=== PATIENT | female | born 1955 | race Caucasian/White ===

== ENCOUNTER → 2018-03-24 | Emergency (ER) | payer SELFPAY ==
[~2018-03-24] MED LIST: ACETAMINOPHEN 1,000 MG/100 ML RTUPB IV ONE; ACETAMINOPHEN 325 MG TABLET PO ONE; ACETAMINOPHEN 325 MG TABLET PO PRN; ACETAMINOPHEN 650 MG SUPP.RECT PR PRN; DEXTROSE 40% GEL 15 GM TUBE PO PRN; DEXTROSE 50%-WATER 25 GM/50 ML DISP.SYRIN IV PRN; FENTANYL CITRATE INJ/PF 100 MCG/2 ML AMPUL IV PRN; GLUCAGON,HUMAN RECOMB 1 MG INJ SUBCUT PRN; IMIPENEM/CILASTATIN SODIUM INJ 500 MG VIAL IV ONE; METOCLOPRAMIDE HCL INJ/PF 10 MG/2 ML SDV IV ONE; MORPHINE SULFATE 10 MG/ML INJ IV PRN; NORMAL SALINE 1000 ML 1,000 ML IV ONE; NORMAL SALINE 1000 ML 1,000 ML IV PRN; ONDANSETRON 4 MG TAB.RAPDIS PO ONE; ONDANSETRON HCL INJ/PF 4 MG/2 ML SDV IV PRN; PANTOPRAZOLE SODIUM 40 MG VIAL IV SCH; PIPERACILLIN/TAZOBACTAM 3.375 GM VIAL IV ONE; RINGERS SOLUTION,LACTATED 1,000 ML IV ONE
--- NOTE | 2018-03-24 18:57 | ER Document Report ---
ED Medical Screen (RME) - General Chief Complaint: Low Blood Pressure Stated Complaint: BLOOD PRESSURE ISSUES TRAVEL OUTSIDE OF THE [place] IN LAST 30 DAYS: No - HPI Notes: 03/24/18 18:55 Patient is a 63-year-old female no significant past medical history presents the emergency department complaining of having fever, nausea, vomiting, occasional dry nonproductive cough that began today. Her fever was as high as 102-103 when she did take Advil for. Patient was seen in urgent care and had a negative influenza test and was told to come the emergency department as her blood pressure was lower for her (80 systolic). Patient states that she has not been eating or drinking much today. She is a decreased amount of urination's. Denies any headache, neck pain, sore throat, chest pain, palpitations, syncope, dyspnea, sob, abdominal pain, diarrhea, urinary retention, dysuria, hematuria, or rash. I have treated and performed a rapid initial assessment of this patient. A comprehensive ED assessment and evaluation of the patient, analysis of test results and completion of medical decision making process will be conducted by additional ED providers. PHYSICAL EXAMINATION: GENERAL: Well-appearing, well-nourished and in no acute distress. A&Ox4. Answers questions appropriately. LUNGS: Breath sounds clear to auscultation bilaterally and equal. No wheezes rales or rhonchi. HEART: Regular rate and rhythm without murmurs, rubs, gallops. ABDOMEN: Soft, nondistended abdomen. No guarding, no rebound. Normal bowel sounds present. No CVA tenderness bilaterally. No obvious tenderness (cannot elicit thorough abd exam w/o table, however). Extremities: No cyanosis, clubbing, or edema b/l. NEUROLOGICAL: Normal speech, normal gait. PSYCH: Normal mood, normal affect. - Related Data Allergies/Adverse Reactions: No Known Allergies Allergy (Verified 03/24/18 16:30) Physical Exam - Vital signs Vitals: Temp Pulse Resp BP Pulse Ox 98.5 F 120 H 18 107/65 97 03/24/18 16:34 03/24/18 16:34 03/24/18 16:34 03/24/18 16:34 03/24/18 16:34 Course - Vital Signs Vital signs: Temp Pulse Resp BP Pulse Ox 98.5 F 120 H 18 107/65 97 03/24/18 16:34 03/24/18 16:34 03/24/18 16:34 03/24/18 16:34 03/24/18 16:34
--- NOTE | 2018-03-24 19:50 | RADIOLOGY REPORT (SQ) ---
EXAM DESCRIPTION: CHEST 2 VIEWS COMPLETED DATE/TIME: 03/24/2018 7:41 pm REASON FOR STUDY: fever, cough COMPARISON: None. EXAM PARAMETERS: NUMBER OF VIEWS: two views TECHNIQUE: Digital Frontal and Lateral radiographic views of the chest acquired. RADIATION DOSE: NA LIMITATIONS: none FINDINGS: LUNGS AND PLEURA: No opacities, masses or pneumothorax. No pleural effusion. MEDIASTINUM AND HILAR STRUCTURES: No masses or contour abnormalities. HEART AND VASCULAR STRUCTURES: Heart normal size. No evidence for failure. BONES: No acute findings. HARDWARE: None in the chest. OTHER: No other significant finding. IMPRESSION: NO ACUTE RADIOGRAPHIC FINDING IN THE CHEST. TECHNICAL DOCUMENTATION: JOB ID: [id number] [employer]- All Rights Reserved Reading location - IP/workstation name: [email or web address]
[2018-03-24 20:49] LABS: HEMATOCRIT 30.9 % (36.0-47.0); HEMOGLOBIN 10.4 g/dL (12.0-15.5); MEAN CORPUSCULAR HEMOGLOBIN 28.8 pg (27.0-33.4); MEAN CORPUSCULAR HGB CONC 33.8 g/dL (32.0-36.0); MEAN CORPUSCULAR VOLUME 85 fl (80-97); RED BLOOD COUNT 3.62 10^6/uL (3.72-5.28); RED CELL DISTRIBUTION WIDTH 16.7 % (11.5-14.0)
[2018-03-24 20:55] LABS: PLATELET COUNT 326 10^3/uL (150-450)
[2018-03-24 21:01] LABS: ABSOLUTE LYMPHOCYTES# (MANUAL) 3.2 10^3/uL (0.5-4.7); ABSOLUTE MONOCYTES # (MANUAL) 1.1 10^3/uL (0.1-1.4); ABSOLUTE NEUTROPHILS# (MANUAL) 49.1 10^3/uL (1.7-8.2); BASOPHILS % (MANUAL) 0 % (0-2); EOSINOPHILS % (MANUAL) 0 % (0-6); LYMPHOCYTES % (MANUAL) 6 % (13-45); METAMYELOCYTES % (MANUAL) 2 % (0); MONOCYTES % (MANUAL) 2 % (3-13); PLATELET CLUMPS PRESENT; PLATELET COMMENT ADEQUATE; SEGMENTED NEUTROPHILS % (MAN) 80 % (42-78); TOTAL CELLS COUNTED 100
[2018-03-24 21:05] LABS: ANISOCYTOSIS 1+; OVALOCYTES SLIGHT; POIKILOCYTOSIS SLIGHT; TOXIC GRANULATION 2+; TOXIC VACUOLATION PRESENT
[2018-03-24 21:08] LABS: BAND NEUTROPHILS % (MANUAL) 10 % (3-5)
[2018-03-24 21:10] LABS: WHITE BLOOD COUNT 53.4 10^3/uL (4.0-10.5)
[2018-03-24 21:51] LABS: ALANINE AMINOTRANSFERASE 11 U/L (9-52); ALBUMIN 3.6 g/dL (3.5-5.0); ALKALINE PHOSPHATASE 82 U/L (38-126); ANION GAP 10 (5-19); ASPARTATE AMINO TRANSFERASE 15 U/L (14-36); BILIRUBIN,DIRECT 0.6 mg/dL (0.0-0.4); BILIRUBIN,TOTAL 1.1 mg/dL (0.2-1.3); BLOOD UREA NITROGEN 18 mg/dL (7-20); CALCIUM 8.7 mg/dL (8.4-10.2); CARBON DIOXIDE 22 mmol/L (22-30); CHLORIDE 102 mmol/L (98-107); GLUCOSE 161 mg/dL (75-110); LIPASE 19.1 U/L (23-300); POTASSIUM 3.7 mmol/L (3.6-5.0); SODIUM 134.2 mmol/L (137-145); TOTAL PROTEIN 6.9 g/dL (6.3-8.2)
--- NOTE | 2018-03-24 22:11 | ER Document Report ---
Addendum entered and electronically signed by PAT MCNALLY PA-C 03/25/18 15:14: Course - Re-evaluation Re-evalutation: 03/25/18 15:14 Transport has arrived for patient. Pt has no new concerns or complaints. Vitals acceptable. Pt stable for transfer. - Vital Signs Vital signs: Temp Pulse Resp BP Pulse Ox 99.1 F 120 H 16 107/88 H 100 03/25/18 11:06 03/24/18 16:34 03/25/18 14:40 03/25/18 14:40 03/25/18 14:40 - Laboratory Result Diagrams: 03/24/18 20:06 03/24/18 21:24 Laboratory results interpreted by me: 03/24/18 03/24/18 03/24/18 20:06 21:24 22:30 WBC 53.4 H* RBC 3.62 L Hgb 10.4 L Hct 30.9 L RDW 16.7 H Seg Neuts % (Manual) 80 H Band Neutrophils % 10 H Lymphocytes % (Manual) 6 L Monocytes % (Manual) 2 L Metamyelocytes % 2 H Abs Neuts (Manual) 49.1 H Sodium 134.2 L Creatinine 1.58 H Est GFR ( Amer) 40 L Est GFR (Non-Af Amer) 33 L Glucose 161 H Lactic Acid Direct Bilirubin 0.6 H Lipase 19.1 L Urine Protein >=500 H Urine Urobilinogen 2.0 H Ur Leukocyte Esterase MODERATE H 03/24/18 23:15 WBC RBC Hgb Hct RDW Seg Neuts % (Manual) Band Neutrophils % Lymphocytes % (Manual) Monocytes % (Manual) Metamyelocytes % Abs Neuts (Manual) Sodium Creatinine Est GFR ( Amer) Est GFR (Non-Af Amer) Glucose Lactic Acid 2.5 H Direct Bilirubin Lipase Urine Protein Urine Urobilinogen Ur Leukocyte Esterase Original Note: ED General - General Chief Complaint: Low Blood Pressure Stated Complaint: BLOOD PRESSURE ISSUES Time Seen by Provider: 03/24/18 18:57 Mode of Arrival: Ambulatory Information source: Patient, Relative, [facility] Records Notes: 63-year-old female with history of alcoholism presents via private vehicle to the emergency department complaining of having fever, nausea, vomiting, occasional dry nonproductive cough that began yesterday. Her fever was as high as 102-103 when she did take Advil for. Patient was seen in urgent care and had a negative influenza test and was told to come the emergency department as her blood pressure was lower for her (80 systolic). Patient states that she has not been eating or drinking much today. She is a decreased amount of urination's. Admits to recent dysuria. Denies any headache, neck pain, sore throat, chest pain, palpitations, syncope, dyspnea, sob, abdominal pain, diarrhea, urinary retention, , hematuria, or rash. Patient states that one month prior to arrival she was experiencing lower abdominal pain, skin flushing. Patient has not had a drink since . She states that she is a binge drinker and before had not drinking for 2 months. She denies any history of cancer, IV drug use. TRAVEL OUTSIDE OF THE [place] IN LAST 30 DAYS: No - HPI Onset: Other Onset/Duration: Gradual, Persistent, Worse Quality of pain: No pain Associated symptoms: Nonproductive cough, Fever, Nausea, Vomiting. denies: Body/muscle aches, Chest pain, Diarrhea, Headache, Shortness of breath Exacerbated by: Denies Relieved by: Denies Similar symptoms previously: No Recently seen / treated by doctor: Yes - Related Data Allergies/Adverse Reactions: No Known Allergies Allergy (Verified 03/24/18 16:30) Past Medical History - General Information source: Patient - Social History Smoking Status: Former Smoker Frequency of alcohol use: hx of alcoholism. last drink 03/03/18 Drug Abuse: None Lives with: Spouse/Significant other Family History: Reviewed & Not Pertinent Patient has suicidal ideation: No Patient has homicidal ideation: No - Medical History Medical History: Negative Renal/ Medical History: Denies: Hx Peritoneal Dialysis Past Surgical History: Reports: Hx Orthopedic Surgery - R ankle Review of Systems - Review of Systems Constitutional: Fever, Malaise, Recent illness. denies: Weight loss EENT: denies: Blurred vision, Throat pain, Difficulty swallowing Cardiovascular: denies: Chest pain, Palpitations, Dizziness Respiratory: denies: Cough, Short of breath Gastrointestinal: Vomiting. denies: Abdominal pain Genitourinary: Dysuria. denies: Flank pain Female Genitourinary: No symptoms reported Musculoskeletal: denies: Back pain Skin: denies: Rash Hematologic/Lymphatic: No symptoms reported Neurological/Psychological: denies: Headaches -: Yes All other systems reviewed and negative Physical Exam - Vital signs Vitals: Temp Pulse Resp BP Pulse Ox 98.5 F 120 H 18 107/65 97 03/24/18 16:34 03/24/18 16:34 03/24/18 16:34 03/24/18 16:34 03/24/18 16:34 - Notes Notes: PHYSICAL EXAMINATION: GENERAL: Well-appearing, well-nourished and in no acute distress. HEAD: Atraumatic, normocephalic. EYES: Pupils equal round and reactive to light, extraocular movements intact, conjunctiva are normal. ENT: Nares patent, oropharynx clear without exudates. Moist mucous membranes. NECK: Normal range of motion, supple without lymphadenopathy LUNGS: Breath sounds clear to auscultation bilaterally and equal. No wheezes rales or rhonchi. HEART: Regular rate and rhythm without murmurs ABDOMEN: Soft, nontender, nondistended abdomen. No guarding, no rebound. No masses appreciated. Female : deferred Musculoskeletal: Normal range of motion, no pitting or edema. No cyanosis. NEUROLOGICAL: Cranial nerves grossly intact. Normal speech, normal gait. Normal sensory, motor exams PSYCH: Normal mood, normal affect. SKIN: Warm, Dry, normal turgor, no rashes or lesions noted. Course - Re-evaluation Re-evalutation: Laboratory 03/24/18 03/24/18 03/24/18 20:06 20:06 21:24 WBC 53.4 H* RBC 3.62 L Hgb 10.4 L Hct 30.9 L MCV 85 MCH 28.8 MCHC 33.8 RDW 16.7 H Plt Count 326 Total Counted 100 Seg Neutrophils % Not Reportable Seg Neuts % (Manual) 80 H Band Neutrophils % 10 H Lymphocytes % Not Reportable Lymphocytes % (Manual) 6 L Monocytes % Not Reportable Monocytes % (Manual) 2 L Eosinophils % Not Reportable Eosinophils % (Manual) 0 Basophils % Not Reportable Basophils % (Manual) 0 Metamyelocytes % 2 H Absolute Neutrophils Not Reportable Abs Neuts (Manual) 49.1 H Absolute Lymphocytes Not Reportable Abs Lymphs (Manual) 3.2 Absolute Monocytes Not Reportable Abs Monocytes (Manual) 1.1 Absolute Eosinophils Not Reportable Absolute Eos (Manual) 0.0 Absolute Basophils Not Reportable Abs Basophils (Manual) 0.0 Toxic Granulation 2+ Toxic Vacuolation PRESENT Clumped Platelets PRESENT Platelet Comment ADEQUATE Poikilocytosis SLIGHT Anisocytosis 1+ Ovalocytes SLIGHT Sodium Cancelled 134.2 L Potassium Cancelled 3.7 Chloride Cancelled 102 Carbon Dioxide Cancelled 22 Anion Gap Cancelled 10 BUN Cancelled 18 Creatinine Cancelled 1.58 H Est GFR ( Amer) Cancelled 40 L Est GFR (Non-Af Amer) Cancelled 33 L Glucose Cancelled 161 H Lactic Acid Calcium Cancelled 8.7 Total Bilirubin Cancelled 1.1 Direct Bilirubin Cancelled 0.6 H Neonat Total Bilirubin Cancelled Not Reportable Neonat Direct Bilirubin Cancelled Not Reportable Neonat Indirect Bili Cancelled Not Reportable AST Cancelled 15 ALT Cancelled 11 Alkaline Phosphatase Cancelled 82 Creatine Kinase CK-MB (CK-2) Troponin I Total Protein Cancelled 6.9 Albumin Cancelled 3.6 Lipase Cancelled 19.1 L Urine Color Urine Appearance Urine pH Ur Specific Diamond Urine Protein Urine Glucose (UA) Urine Ketones Urine Blood Urine Nitrite Urine Bilirubin Urine Urobilinogen Ur Leukocyte Esterase Urine WBC (Auto) Urine RBC (Auto) Urine Bacteria (Auto) Urine WBC Clumps Squamous Epi Cells Auto U Non-Squamous Epis Auto Urine Mucus (Auto) Urine Ascorbic Acid Influenza A (Rapid) Influenza B (Rapid) 03/24/18 03/24/18 03/24/18 21:24 21:24 22:30 WBC RBC Hgb Hct MCV MCH MCHC RDW Plt Count Total Counted Seg Neutrophils % Seg Neuts % (Manual) Band Neutrophils % Lymphocytes % Lymphocytes % (Manual) Monocytes % Monocytes % (Manual) Eosinophils % Eosinophils % (Manual) Basophils % Basophils % (Manual) Metamyelocytes % Absolute Neutrophils Abs Neuts (Manual) Absolute Lymphocytes Abs Lymphs (Manual) Absolute Monocytes Abs Monocytes (Manual) Absolute Eosinophils Absolute Eos (Manual) Absolute Basophils Abs Basophils (Manual) Toxic Granulation Toxic Vacuolation Clumped Platelets Platelet Comment Poikilocytosis Anisocytosis Ovalocytes Sodium Potassium Chloride Carbon Dioxide Anion Gap BUN Creatinine Est GFR ( Amer) Est GFR (Non-Af Amer) Glucose Lactic Acid Calcium Total Bilirubin Direct Bilirubin Neonat Total Bilirubin Neonat Direct Bilirubin Neonat Indirect Bili AST ALT Alkaline Phosphatase Creatine Kinase 32 CK-MB (CK-2) 0.29 Troponin I < 0.012 Total Protein Albumin Lipase Urine Color YELLOW Urine Appearance TURBID Urine pH 5.0 Ur Specific Diamond 1.023 Urine Protein >=500 H Urine Glucose (UA) NEGATIVE Urine Ketones NEGATIVE Urine Blood NEGATIVE Urine Nitrite NEGATIVE Urine Bilirubin NEGATIVE Urine Urobilinogen 2.0 H Ur Leukocyte Esterase MODERATE H Urine WBC (Auto) >182 Urine RBC (Auto) 47 Urine Bacteria (Auto) 1+ Urine WBC Clumps MANY Squamous Epi Cells Auto 3 U Non-Squamous Epis Auto 4 Urine Mucus (Auto) FEW Urine Ascorbic Acid NEGATIVE Influenza A (Rapid) Influenza B (Rapid) 03/24/18 03/24/18 22:30 23:15 WBC RBC Hgb Hct MCV MCH MCHC RDW Plt Count Total Counted Seg Neutrophils % Seg Neuts % (Manual) Band Neutrophils % Lymphocytes % Lymphocytes % (Manual) Monocytes % Monocytes % (Manual) Eosinophils % Eosinophils % (Manual) Basophils % Basophils % (Manual) Metamyelocytes % Absolute Neutrophils Abs Neuts (Manual) Absolute Lymphocytes Abs Lymphs (Manual) Absolute Monocytes Abs Monocytes (Manual) Absolute Eosinophils Absolute Eos (Manual) Absolute Basophils Abs Basophils (Manual) Toxic Granulation Toxic Vacuolation Clumped Platelets Platelet Comment Poikilocytosis Anisocytosis Ovalocytes Sodium Potassium Chloride Carbon Dioxide Anion Gap BUN Creatinine Est GFR ( Amer) Est GFR (Non-Af Amer) Glucose Lactic Acid 2.5 H Calcium Total Bilirubin Direct Bilirubin Neonat Total Bilirubin Neonat Direct Bilirubin Neonat Indirect Bili AST ALT Alkaline Phosphatase Creatine Kinase CK-MB (CK-2) Troponin I Total Protein Albumin Lipase Urine Color Urine Appearance Urine pH Ur Specific Diamond Urine Protein Urine Glucose (UA) Urine Ketones Urine Blood Urine Nitrite Urine Bilirubin Urine Urobilinogen Ur Leukocyte Esterase Urine WBC (Auto) Urine RBC (Auto) Urine Bacteria (Auto) Urine WBC Clumps Squamous Epi Cells Auto U Non-Squamous Epis Auto Urine Mucus (Auto) Urine Ascorbic Acid Influenza A (Rapid) NEGATIVE Influenza B (Rapid) NEGATIVE Chest X-Ray 03/24/18 18:54 IMPRESSION: NO ACUTE RADIOGRAPHIC FINDING IN THE CHEST. Abdomen/Pelvis CT 03/24/18 22:06 IMPRESSION: Small hiatal hernia. Minor scarring in the lung bases. Complex mixed cystic and solid mass in the left adnexa/left hemipelvis with surrounding inflammation and phlegmon. There are several sigmoid diverticuli in the region and there is wall thickening of the sigmoid colon. However, whether this relates to diverticular abscess or complex ovarian neoplasm is indeterminate. The mass and inflammation results in mild to moderate left-sided hydronephrosis and hydroureter with left perinephric inflammatory change and edema. Cholelithiasis. Nodular, cirrhotic change to the liver. Splenomegaly at 16 cm. TECHNICAL DOCUMENTATION: Quality ID # 436: Final reports with documentation of one or more dose reduction techniques (e.g., Automated exposure control, adjustment of the mA and/or kV according to patient size, use of iterative reconstruction technique) copyright 2010 [employer]- All Rights Reserved Chest CT 03/24/18 22:06 IMPRESSION: Small hiatal hernia. Minor scarring in the lung bases. Complex mixed cystic and solid mass in the left adnexa/left hemipelvis with surrounding inflammation and phlegmon. There are several sigmoid diverticuli in the region and there is wall thickening of the sigmoid colon. However, whether this relates to diverticular abscess or complex ovarian neoplasm is indeterminate. The mass and inflammation results in mild to moderate left-sided hydronephrosis and hydroureter with left perinephric inflammatory change and edema. Cholelithiasis. Nodular, cirrhotic change to the liver. Splenomegaly at 16 cm. TECHNICAL DOCUMENTATION: Quality ID # 436: Final reports with documentation of one or more dose reduction techniques (e.g., Automated exposure control, adjustment of the mA and/or kV according to patient size, use of iterative reconstruction technique) copyright 2010 [employer]- All Rights Reserved Head CT 03/24/18 22:06 IMPRESSION: Unremarkable unenhanced CT brain TECHNICAL DOCUMENTATION: Quality ID # 436: Final reports with documentation of one or more dose reduction techniques (e.g., Automated exposure control, adjustment of the mA and/or kV according to patient size, use of iterative reconstruction technique) copyright 2010 [employer]- All Rights Reserved Temp Pulse Resp BP Pulse Ox 101.2 F H 120 H 15 119/60 100 03/24/18 23:51 03/24/18 16:34 03/24/18 23:09 03/24/18 23:09 03/24/18 23:09 03/24/18 23:26 Spoke to the radiologist regarding patient's abdominal CT. She says that there is a large complex mass on the left side. She is unable to determine whether this is a diverticular abscess or a ovarian tumor. She does not think that a transvaginal ultrasound would differentiate this mass at this time. Dr. Banks surgery on-call has been contacted to see the patient. CBC shows a significant leukocytosis of 53 with a bandemia. CMP does show a acute kidney injury with a creatinine of 1.58. Urinalysis consistent with urinary tract infection. Influenza negative. Zosyn, imipenem, Tylenol, IV fluids administered. 03/24/18 23:55 Dr. Banks evaluated the patient and is requesting a transvaginal ultrasound. He is requesting that the hospitalist admit the patient but if they refuse he has agreed to admit the patient to the surgical floor. 03/25/18 01:56 03/25/18 02:[address] Nuñez hospitalist who states that the patient should be admitted to surgery. He states that he will consult. Dr. Coombs made aware of the of the hospitalist refusal for admission. He agrees to admit the patient to the IMCU. Patient reevaluated multiple times and she remains alert, awake and is in no acute distress. Patient agreeable to admission. 03/25/18 02:53 - Vital Signs Vital signs: Temp Pulse Resp BP Pulse Ox 100.1 F 120 H 12 112/67 96 03/25/18 01:20 03/24/18 16:34 03/25/18 02:25 03/25/18 02:25 03/25/18 02:25 - Laboratory Result Diagrams: 03/24/18 20:06 03/24/18 21:24 Laboratory results interpreted by me: 03/24/18 03/24/18 03/24/18 20:06 21:24 22:30 WBC 53.4 H* RBC 3.62 L Hgb 10.4 L Hct 30.9 L RDW 16.7 H Seg Neuts % (Manual) 80 H Band Neutrophils % 10 H Lymphocytes % (Manual) 6 L Monocytes % (Manual) 2 L Metamyelocytes % 2 H Abs Neuts (Manual) 49.1 H Sodium 134.2 L Creatinine 1.58 H Est GFR ( Amer) 40 L Est GFR (Non-Af Amer) 33 L Glucose 161 H Lactic Acid Direct Bilirubin 0.6 H Lipase 19.1 L Urine Protein >=500 H Urine Urobilinogen 2.0 H Ur Leukocyte Esterase MODERATE H 03/24/18 23:15 WBC RBC Hgb Hct RDW Seg Neuts % (Manual) Band Neutrophils % Lymphocytes % (Manual) Monocytes % (Manual) Metamyelocytes % Abs Neuts (Manual) Sodium Creatinine Est GFR ( Amer) Est GFR (Non-Af Amer) Glucose Lactic Acid 2.5 H Direct Bilirubin Lipase Urine Protein Urine Urobilinogen Ur Leukocyte Esterase - Diagnostic Test Radiology reviewed: Image reviewed, Reports reviewed - EKG Interpretation by Me EKG shows normal: Sinus rhythm Rate: Normal - T wave inversions in leads V2 and V3 When compared to previous EKG there are: Previous EKG unavailable Critical Care Note - Critical Care Note Total time excluding time spent on procedures (mins): 45 - Minutes of critical care time spent in direct contact evaluating and reevaluating the patient, treating symptoms, reviewing labs and studies and speaking with family and consultants excluding any procedures Discharge - Discharge Clinical Impression: Pelvic mass, Tachycardia, Ovarian mass, left Sepsis Qualifiers: Sepsis type: sepsis due to unspecified organism Qualified Code(s): A41.9 - Sepsis, unspecified organism Leukocytosis Qualifiers: Leukocytosis type: bandemia Qualified Code(s): D72.825 - Bandemia Fever Qualifiers: Fever type: unspecified Qualified Code(s): R50.9 - Fever, unspecified Hypotension Qualifiers: Hypotension type: unspecified hypotension type Qualified Code(s): I95.9 - Hypotension, unspecified Urinary tract infection Qualifiers: Urinary tract infection type: site unspecified Hematuria presence: without hematuria Qualified Code(s): N39.0 - Urinary tract infection, site not specified Condition: Fair Disposition: ADMITTED INPATIENT Admitting Provider: Surgicalist Unit Admitted: [facility]
[2018-03-24 23:02] LABS: APPEARANCE,URINE TURBID; BILIRUBIN,URINE NEGATIVE (NEGATIVE); COLOR,URINE YELLOW; GLUCOSE, URINE NEGATIVE (NEGATIVE); KETONES,URINE NEGATIVE (NEGATIVE); LEUKOCYTE ESTERASE,URINE MODERATE (NEGATIVE); NITRITE,URINE NEGATIVE (NEGATIVE); PROTEIN,URINE >=500 mg/dL (NEGATIVE); URINE SPECIFIC GRAVITY 1.023
[2018-03-24 23:07] LABS: A TYPE INFLUENZA AG NEGATIVE (NEGATIVE); B INFLUENZA AG NEGATIVE (NEGATIVE)
--- NOTE | 2018-03-24 23:08 | RADIOLOGY REPORT (SQ) ---
EXAM DESCRIPTION: CT HEAD WITHOUT IV CONTRAST COMPLETED DATE/TME: 03/24/2018 22:06 CLINICAL HISTORY: 63 years, Female, Fever,wbc-53 COMPARISON: None. TECHNIQUE: 184 Images stored on PACS. All CT scanners at this facility use dose modulation, iterative reconstruction, and/or weight based dosing when appropriate to reduce radiation dose to as low as reasonably achievable (ALARA). [facility]: Dose Right [facility]: CareDose [facility]: Dose Right [facility]: Teradose 4D [facility]: [employer] LIMITATIONS: None. FINDINGS: The globes are intact. The paranasal sinuses and mastoid air cells are unremarkable. No displaced or depressed skull fracture. No intra or extra-axial hemorrhage. CT is limited for evaluation of acute infarct. No CT evidence for large or territorial acute infarct. No mass or midline shift. IMPRESSION: Unremarkable unenhanced CT brain TECHNICAL DOCUMENTATION: Quality ID # 436: Final reports with documentation of one or more dose reduction techniques (e.g., Automated exposure control, adjustment of the mA and/or kV according to patient size, use of iterative reconstruction technique) copyright 2011 [employer]- All Rights Reserved
--- NOTE | 2018-03-24 23:10 | RADIOLOGY REPORT (SQ) ---
EXAM DESCRIPTION: CT CHEST, abdomen and pelvis WITH IV CONTRAST COMPLETED DATE/TME: 03/24/2018 22:06 CLINICAL HISTORY: 63 years, Female, Fever,wbc-53 COMPARISON: None. TECHNIQUE: 737 Images stored on PACS. All CT scanners at this facility use dose modulation, iterative reconstruction, and/or weight based dosing when appropriate to reduce radiation dose to as low as reasonably achievable (ALARA). [facility]: Dose Right [facility]: CareDose [facility]: Dose Right [facility]: Teradose 4D [facility]: [employer] LIMITATIONS: None. FINDINGS: CT chest: The thyroid gland enhances normally. The mediastinal vasculature enhances normally. No mediastinal or hilar adenopathy. Small hiatal hernia. Osseous structures of the thorax are grossly intact. No pneumothorax. The visualized airways are patent. Minor scarring in the lung bases. Lungs are otherwise clear. CT abdomen/pelvis: Osseous structures are grossly intact. Fatty infiltrative change to the liver. The liver has a nodular contour suggesting cirrhotic change as well. The spleen is enlarged measuring 16 cm. The adrenal glands, pancreas are unremarkable. Multiple gallstones. The right kidney is unremarkable. Delayed excretion of the left kidney with an edematous appearance to the left kidney and left perinephric inflammatory change. Mild to moderate left-sided hydronephrosis and hydroureter. Findings are secondary to a complex mixed cystic and solid appearing mass in the left adnexa/left hemipelvis. There are surrounding inflammatory changes within the pelvis and there is also wall thickening of the adjacent sigmoid colon. Multiple sigmoid diverticuli are present. It is indeterminate whether this complex lesion reflects an abscess secondary to acute sigmoid diverticulitis or relates to an ovarian neoplasm with surrounding inflammation. Approximate size is 7.4 x 5.8 x 6.3 cm. There is surrounding phlegmon. No free air or free fluid.. IMPRESSION: Small hiatal hernia. Minor scarring in the lung bases. Complex mixed cystic and solid mass in the left adnexa/left hemipelvis with surrounding inflammation and phlegmon. There are several sigmoid diverticuli in the region and there is wall thickening of the sigmoid colon. However, whether this relates to diverticular abscess or complex ovarian neoplasm is indeterminate. The mass and inflammation results in mild to moderate left-sided hydronephrosis and hydroureter with left perinephric inflammatory change and edema. Cholelithiasis. Nodular, cirrhotic change to the liver. Splenomegaly at 16 cm. TECHNICAL DOCUMENTATION: Quality ID # 436: Final reports with documentation of one or more dose reduction techniques (e.g., Automated exposure control, adjustment of the mA and/or kV according to patient size, use of iterative reconstruction technique) copyright 2011 [employer]- All Rights Reserved
[2018-03-24 23:48] LABS: CREATINE KINASE MB 0.29 ng/mL (<4.55)
[2018-03-24 23:52] LABS: TROPONIN I < 0.012 ng/mL
--- NOTE | 2018-03-25 01:19 | RADIOLOGY REPORT (SQ) ---
EXAM DESCRIPTION: US TRANSVAGINAL COMPLETED DATE/TME: 03/24/2018 23:55 CLINICAL HISTORY: 63 years, Female, Left complex mass COMPARISON: CT from 03/24/2018. TECHNIQUE: Transverse and longitudinal transvaginal sonographic images of the pelvis LIMITATIONS: None. FINDINGS: The uterus measures 7.2 x 2.9 x 3.9 cm. The myometrium is homogenous. The endometrium is poorly defined. Endometrium measures approximately 9.1 mm in thickness, which is thickened in a postmenopausal patient. The right ovary is not well seen likely due to bowel gas. The left ovary measures 6.7 x 4.3 x 3.9 cm. Doppler and spectral analysis with color flow shows normal flow to the left ovary. There is a somewhat complex cystic lesion of the left ovary measuring 1.9 x 2.7 x 2.3 cm. No free fluid. IMPRESSION: Complex cystic lesion of the left ovary, as above. Given findings on recent CT scan, this lesion may only be partly assessed on the ultrasound. However, this is difficult to separate from the left ovary and is worrisome for complex neoplasm. The endometrium is considered thickened for postmenopausal patient, at 9.1 mm. copyright 2010 [employer]- All Rights Reserved
[2018-03-25] MEDS: HEPARIN SOD (PORCINE) 5,000 UNIT/ML 1 ML SYRINGE SUBCUT SCH ×2 (05:47→14:55)
--- NOTE | 2018-03-25 05:58 | PDOC CONSULTATION ---
Consultation Consult Date: 03/25/18 Attending physician:: SHIRA BANKS Consult reason:: RANJANA, Alcohol abuse, SIRS History of Present Illness Admission Date/PCP: 03/25/18 02:19 Patient complains of: Fever with nausea and vomiting History of Present Illness: MARISOL LUNA is a 63 year old female who presented to the emergency room from urgent care with a 1 day history of nausea, vomiting and fever. She admits that she had a severe fever of greater than 102 F at home that improved, earlier today, after she took ibuprofen. She continued to have nausea with vomiting and also acknowledged a mild nonproductive cough. Secondary to her nausea and vomiting her oral intake of food and fluids has significantly dropped off over the last 24 hours and subsequently she has not been passing much urine. She presented to the urgent care center where on evaluation they found her to have a low blood pressure (systolic of 80) on one reading and redirected her immediately to the emergency room. She acknowledges having prior similar episodes and has not identified any aggravating or other ameliorating factors for her fever with nausea and vomiting. In the emergency room she was found to have pyuria and a white count of 53,000 with a significant left shift. CT scan revealed a complex mass in her left lower abdomen/pelvis and surgery was consulted. Dr. Banks agreed to admit the patient but asked for a medical consult in the emergency room as the patient has a history of binge drinking/alcohol abuse as well as an acute kidney injury and SIRS syndrome. Past Medical History Cardiac Medical History: Denies: Coronary Artery Disease, Hypertension Pulmonary Medical History: Denies: Asthma, Chronic Obstructive Pulmonary Disease (COPD) EENT Medical History: Reports: None Neurological Medical History: Denies: Hemorrhagic CVA, Ischemic CVA, Seizures Renal/ Medical History: Denies: Chronic Kidney Disease, Nephrolithiasis Malignancy Medical History: Reports: None GI Medical History: Denies: Cirrhosis, Hepatitis Musculoskeltal Medical History: Denies: Arthritis, Fibromyalgia Skin Medical History: Denies: Eczema, Psoriasis Psychiatric Medical History: Reports: Alcohol Dependency, Tobacco Dependency Denies: Substance Abuse Traumatic Medical History: Reports: None Hematology: Denies: Anemia, Bleeding Tendencies Infectious Medical History: Reports: None Past Surgical History Past Surgical History: Reports: Orthopedic Surgery - Right ankle surgery Social History Information Source: Patient Lives with: Spouse/Significant other Smoking Status: Former Smoker Frequency of Alcohol Use: Heavy - Heavy binge drinking no history of alcohol withdrawal syndrome or seizures. Hx Recreational Drug Use: No Drugs: None Hx Prescription Drug Abuse: No Family History Parental Family History Reviewed: Yes Children Family History Reviewed: No Sibling(s) Family History Reviewed.: Yes Medication/Allergy Allergies/Adverse Reactions: No Known Allergies Allergy (Verified 03/24/18 16:30) Review of Systems Constitutional: PRESENT: anorexia, fever(s), other - Malaise Eyes: ABSENT: visual disturbances, other - Ocular pain Ears: ABSENT: hearing changes, other - Ear pain Nose, Mouth, and Throat: ABSENT: mouth pain, sore throat Cardiovascular: ABSENT: chest pain, dyspnea on exertion, palpitations Respiratory: PRESENT: cough - Occasional nonproductive. ABSENT: dyspnea Gastrointestinal: PRESENT: nausea, vomiting. ABSENT: abdominal pain, constipation, diarrhea Genitourinary: ABSENT: dysuria, hematuria Musculoskeletal: ABSENT: back pain, joint swelling Integumentary: ABSENT: pruritus, rash Neurological: ABSENT: confusion, convulsions, memory loss, tremor(s) Psychiatric: ABSENT: anxiety, depression Endocrine: ABSENT: cold intolerance, heat intolerance Hematologic/Lymphatic: ABSENT: easy bleeding, easy bruising Physical Exam Vital Signs: Temp Pulse Resp BP Pulse Ox 101.2 F H 120 H 14 108/59 L 96 03/24/18 23:51 03/24/18 16:34 03/25/18 01:20 03/25/18 00:01 03/25/18 01:20 Intake & Output 03/23/18 03/24/18 03/25/18 23:59 23:59 23:59 Intake Total 1000 Balance 1000 Weight 103.8 kg General appearance: PRESENT: no acute distress, cooperative Head exam: PRESENT: atraumatic, normocephalic Eye exam: PRESENT: conjunctiva pink, EOMI. ABSENT: scleral icterus Ear exam: PRESENT: normal external ear exam. ABSENT: bleeding, drainage Mouth exam: PRESENT: dry mucosa, neck supple Neck exam: ABSENT: thyromegaly, tracheal deviation Respiratory exam: PRESENT: clear to auscultation dandy, symmetrical, unlabored Cardiovascular exam: PRESENT: RRR. ABSENT: clicks, diastolic murmur, gallop, rubs, systolic murmur Pulses: PRESENT: normal radial pulses, normal dorsalis pedis pul Vascular exam: PRESENT: normal capillary refill. ABSENT: pallor GI/Abdominal exam: PRESENT: normal bowel sounds, organolmegaly - Mild hepatomegaly, soft Rectal exam: PRESENT: deferred Extremities exam: ABSENT: joint swelling, pedal edema Musculoskeletal exam: ABSENT: deformity, dislocation Neurological exam: PRESENT: alert, oriented to person, oriented to place, oriented to time, oriented to situation, CN II-XII grossly intact. ABSENT: motor sensory deficit Psychiatric exam: PRESENT: appropriate affect, normal mood Skin exam: PRESENT: dry, intact, warm. ABSENT: jaundice, rash, urticaria Results Laboratory Results: 03/24/18 20:06 03/24/18 21:24 03/24/18 03/24/18 03/24/18 20:06 20:06 21:24 WBC 53.4 H* RBC 3.62 L Hgb 10.4 L Hct 30.9 L MCV 85 MCH 28.8 MCHC 33.8 RDW 16.7 H Plt Count 326 Seg Neutrophils % Not Reportable Lymphocytes % Not Reportable Monocytes % Not Reportable Eosinophils % Not Reportable Basophils % Not Reportable Absolute Neutrophils Not Reportable Absolute Lymphocytes Not Reportable Absolute Monocytes Not Reportable Absolute Eosinophils Not Reportable Absolute Basophils Not Reportable Sodium Cancelled 134.2 L Potassium Cancelled 3.7 Chloride Cancelled 102 Carbon Dioxide Cancelled 22 Anion Gap Cancelled 10 BUN Cancelled 18 Creatinine Cancelled 1.58 H Est GFR ( Amer) Cancelled 40 L Est GFR (Non-Af Amer) Cancelled 33 L Glucose Cancelled 161 H Lactic Acid Calcium Cancelled 8.7 Total Bilirubin Cancelled 1.1 AST Cancelled 15 ALT Cancelled 11 Alkaline Phosphatase Cancelled 82 Total Protein Cancelled 6.9 Albumin Cancelled 3.6 Lipase Cancelled 19.1 L Urine Color Urine Appearance Urine pH Ur Specific [place] Urine Protein Urine Glucose (UA) Urine Ketones Urine Blood Urine Nitrite Ur Leukocyte Esterase Urine WBC (Auto) Urine RBC (Auto) 03/24/18 03/24/18 22:30 23:15 WBC RBC Hgb Hct MCV MCH MCHC RDW Plt Count Seg Neutrophils % Lymphocytes % Monocytes % Eosinophils % Basophils % Absolute Neutrophils Absolute Lymphocytes Absolute Monocytes Absolute Eosinophils Absolute Basophils Sodium Potassium Chloride Carbon Dioxide Anion Gap BUN Creatinine Est GFR ( Amer) Est GFR (Non-Af Amer) Glucose Lactic Acid 2.5 H Calcium Total Bilirubin AST ALT Alkaline Phosphatase Total Protein Albumin Lipase Urine Color YELLOW Urine Appearance TURBID Urine pH 5.0 Ur Specific [place] 1.023 Urine Protein >=500 H Urine Glucose (UA) NEGATIVE Urine Ketones NEGATIVE Urine Blood NEGATIVE Urine Nitrite NEGATIVE Ur Leukocyte Esterase MODERATE H Urine WBC (Auto) >182 Urine RBC (Auto) 47 03/24/18 03/24/18 21:24 21:24 Creatine Kinase 32 CK-MB (CK-2) 0.29 Troponin I < 0.012 Impressions: Chest X-Ray 03/24/18 18:54 IMPRESSION: NO ACUTE RADIOGRAPHIC FINDING IN THE CHEST. Abdomen/Pelvis CT 03/24/18 22:06 IMPRESSION: Small hiatal hernia. Minor scarring in the lung bases. Complex mixed cystic and solid mass in the left adnexa/left hemipelvis with surrounding inflammation and phlegmon. There are several sigmoid diverticuli in the region and there is wall thickening of the sigmoid colon. However, whether this relates to diverticular abscess or complex ovarian neoplasm is indeterminate. The mass and inflammation results in mild to moderate left-sided hydronephrosis and hydroureter with left perinephric inflammatory change and edema. Cholelithiasis. Nodular, cirrhotic change to the liver. Splenomegaly at 16 cm. TECHNICAL DOCUMENTATION: Quality ID # 436: Final reports with documentation of one or more dose reduction techniques (e.g., Automated exposure control, adjustment of the mA and/or kV according to patient size, use of iterative reconstruction technique) copyright 2010 [employer]- All Rights Reserved Chest CT 03/24/18 22:06 IMPRESSION: Small hiatal hernia. Minor scarring in the lung bases. Complex mixed cystic and solid mass in the left adnexa/left hemipelvis with surrounding inflammation and phlegmon. There are several sigmoid diverticuli in the region and there is wall thickening of the sigmoid colon. However, whether this relates to diverticular abscess or complex ovarian neoplasm is indeterminate. The mass and inflammation results in mild to moderate left-sided hydronephrosis and hydroureter with left perinephric inflammatory change and edema. Cholelithiasis. Nodular, cirrhotic change to the liver. Splenomegaly at 16 cm. TECHNICAL DOCUMENTATION: Quality ID # [id number]: Final reports with documentation of one or more dose reduction techniques (e.g., Automated exposure control, adjustment of the mA and/or kV according to patient size, use of iterative reconstruction technique) copyright 2010 [employer]- All Rights Reserved Head CT 03/24/18 22:06 IMPRESSION: Unremarkable unenhanced CT brain TECHNICAL DOCUMENTATION: Quality ID # [id number]: Final reports with documentation of one or more dose reduction techniques (e.g., Automated exposure control, adjustment of the mA and/or kV according to patient size, use of iterative reconstruction technique) copyright 2010 [employer]- All Rights Reserved Transvaginal US 03/24/18 23:55 IMPRESSION: Complex cystic lesion of the left ovary, as above. Given findings on recent CT scan, this lesion may only be partly assessed on the ultrasound. However, this is difficult to separate from the left ovary and is worrisome for complex neoplasm. The endometrium is considered thickened for postmenopausal patient, at 9.1 mm. copyright 2010 [employer]- All Rights Reserved Assessment & Plan - Diagnosis (1) SIRS (systemic inflammatory response syndrome) Is this a current diagnosis for this admission?: Yes Plan: Patient has a history of fever with an associated history of hypotension and a demonstrable leukocytosis. Blood and urine cultures are pending. Patient is certainly a strong candidate for sepsis and close observation will be performed. She will be treated with aggressive IV fluid replacement as well as broad- spectrum antibiotic therapy. Daily CBCs as well as metabolic profiles will be obtained. (2) RANJANA (acute kidney injury) Is this a current diagnosis for this admission?: Yes Plan: Patient's acute kidney injury will be addressed with aggressive fluid replacement and continued monitoring of renal functions. (3) Urinary tract infection Qualifiers: Urinary tract infection type: site unspecified Hematuria presence: without hematuria Qualified Code(s): N39.0 - Urinary tract infection, site not specified Is this a current diagnosis for this admission?: Yes Plan: Patient's urinary tract infection will be treated with aggressive fluid replacement as well as IV antibiotic therapy with the broad-spectrum agent used for treating her abdominal infection providing coverage for urinary tract infection. (4) Alcohol abuse Is this a current diagnosis for this admission?: Yes Plan: Given the patient has no history of seizures or other alcohol withdrawal symptoms with past discontinuations of alcohol she will be monitored during her hospital course and will receive Valium 10 mg IV every hour as needed agitation, tremor or severe anxiety. - Time Time Spent: 30 to 50 Minutes Medications reviewed and adjusted accordingly: Yes Anticipated discharge: Home - Plan Summary Plan Summary: Many thanks to Dr. Banks for allowing us to participate in the management of this patient.
--- NOTE | 2018-03-25 07:24 | EKG REPORT ---
SEVERITY:- ABNORMAL ECG - SINUS RHYTHM NONSPECIFIC T ABNORMALITIES, ANTERIOR LEADS : Confirmed by: Nicolasa Varma MD 25-Mar-2018 07:24:13
[2018-03-25] MEDS: RINGERS SOLUTION,LACTATED 1,000 ML IV PRN ×2 (07:44→11:13)
--- NOTE | 2018-03-25 08:42 | PDOC CONSULTATION ---
Consultation Consult Date: 03/25/18 Consult reason:: Pelvic mass History of Present Illness Admission Date/PCP: 03/25/18 02:19 Patient complains of: Abdominal pain History of Present Illness: MARISOL LUNA is a 63 year old female 2 para 2. She went through menopause she states in her 40s. She and her moved here from [place] approximately 2 years ago. She has not kept up with mammograms or Pap smears over the years. She states she is usually very healthy and does not see a doctor. Her illness started yesterday and came into the ER. Her history has been documented by other physicians please refer to their notes. Past Medical History LMP: Menopausal Obstetrical History: none - She has had 2 vaginal deliveries Cardiac Medical History: Denies: Coronary Artery Disease, Hypertension Pulmonary Medical History: Denies: Asthma, Chronic Obstructive Pulmonary Disease (COPD) EENT Medical History: Reports: None Neurological Medical History: Denies: Hemorrhagic CVA, Ischemic CVA, Seizures Renal/ Medical History: Denies: Chronic Kidney Disease, Nephrolithiasis Malignancy Medical History: Reports: None GI Medical History: Denies: Cirrhosis, Hepatitis Musculoskeltal Medical History: Denies: Arthritis, Fibromyalgia Skin Medical History: Denies: Eczema, Psoriasis Psychiatric Medical History: Reports: Alcohol Dependency, Tobacco Dependency Denies: Substance Abuse Traumatic Medical History: Reports: None Infectious Medical History: Reports: None Social History Lives with: Spouse/Significant other Smoking Status: Former Smoker Frequency of Alcohol Use: Heavy - Heavy binge drinking no history of alcohol withdrawal syndrome or seizures. Hx Recreational Drug Use: No Drugs: None Hx Prescription Drug Abuse: No Family History Family History: Reviewed & Not Pertinent Parental Family History Reviewed: No Children Family History Reviewed: No Sibling(s) Family History Reviewed.: No Medication/Allergy Allergies/Adverse Reactions: No Known Allergies Allergy (Verified 03/24/18 16:30) Physical Exam - Physical Exam Vital Signs: Temp Pulse Resp BP Pulse Ox 100.8 F H 120 H 26 H 106/78 92 03/25/18 07:01 03/24/18 16:34 03/25/18 07:01 03/25/18 07:01 03/25/18 07:01 Intake & Output 03/24/18 03/25/18 03/26/18 06:59 06:59 06:59 Intake Total 3000 300 Balance 3000 300 Weight 103.8 kg General appearance: PRESENT: mild distress, obese Head exam: PRESENT: atraumatic GI/Abdominal exam: PRESENT: other - Her abdomen is soft she has mild tenderness in the expected area based on her CAT scan. Gentrourinary exam: PRESENT: other - This exam was deferred per patient's request she is not feeling well. The CAT scan shows a mass in the left pelvis. Psychiatric exam: PRESENT: agitated Result Laboratory Results: 03/24/18 20:06 03/24/18 21:24 03/24/18 03/24/18 03/24/18 20:06 20:06 21:24 WBC 53.4 H* RBC 3.62 L Hgb 10.4 L Hct 30.9 L MCV 85 MCH 28.8 MCHC 33.8 RDW 16.7 H Plt Count 326 Seg Neutrophils % Not Reportable Lymphocytes % Not Reportable Monocytes % Not Reportable Eosinophils % Not Reportable Basophils % Not Reportable Absolute Neutrophils Not Reportable Absolute Lymphocytes Not Reportable Absolute Monocytes Not Reportable Absolute Eosinophils Not Reportable Absolute Basophils Not Reportable Sodium Cancelled 134.2 L Potassium Cancelled 3.7 Chloride Cancelled 102 Carbon Dioxide Cancelled 22 Anion Gap Cancelled 10 BUN Cancelled 18 Creatinine Cancelled 1.58 H Est GFR ( Amer) Cancelled 40 L Est GFR (Non-Af Amer) Cancelled 33 L Glucose Cancelled 161 H Lactic Acid Calcium Cancelled 8.7 Total Bilirubin Cancelled 1.1 AST Cancelled 15 ALT Cancelled 11 Alkaline Phosphatase Cancelled 82 Total Protein Cancelled 6.9 Albumin Cancelled 3.6 Lipase Cancelled 19.1 L Urine Color Urine Appearance Urine pH Ur Specific [place] Urine Protein Urine Glucose (UA) Urine Ketones Urine Blood Urine Nitrite Ur Leukocyte Esterase Urine WBC (Auto) Urine RBC (Auto) 03/24/18 03/24/18 03/25/18 22:30 23:15 03:43 WBC RBC Hgb Hct MCV MCH MCHC RDW Plt Count Seg Neutrophils % Lymphocytes % Monocytes % Eosinophils % Basophils % Absolute Neutrophils Absolute Lymphocytes Absolute Monocytes Absolute Eosinophils Absolute Basophils Sodium Potassium Chloride Carbon Dioxide Anion Gap BUN Creatinine Est GFR ( Amer) Est GFR (Non-Af Amer) Glucose Lactic Acid 2.5 H 0.9 Calcium Total Bilirubin AST ALT Alkaline Phosphatase Total Protein Albumin Lipase Urine Color YELLOW Urine Appearance TURBID Urine pH 5.0 Ur Specific [place] 1.023 Urine Protein >=500 H Urine Glucose (UA) NEGATIVE Urine Ketones NEGATIVE Urine Blood NEGATIVE Urine Nitrite NEGATIVE Ur Leukocyte Esterase MODERATE H Urine WBC (Auto) >182 Urine RBC (Auto) 47 03/24/18 03/24/18 21:24 21:24 Creatine Kinase 32 CK-MB (CK-2) 0.29 Troponin I < 0.012 Impressions: Chest X-Ray 03/24/18 18:54 IMPRESSION: NO ACUTE RADIOGRAPHIC FINDING IN THE CHEST. Abdomen/Pelvis CT 03/24/18 22:06 IMPRESSION: Small hiatal hernia. Minor scarring in the lung bases. Complex mixed cystic and solid mass in the left adnexa/left hemipelvis with surrounding inflammation and phlegmon. There are several sigmoid diverticuli in the region and there is wall thickening of the sigmoid colon. However, whether this relates to diverticular abscess or complex ovarian neoplasm is indeterminate. The mass and inflammation results in mild to moderate left-sided hydronephrosis and hydroureter with left perinephric inflammatory change and edema. Cholelithiasis. Nodular, cirrhotic change to the liver. Splenomegaly at 16 cm. TECHNICAL DOCUMENTATION: Quality ID # 436: Final reports with documentation of one or more dose reduction techniques (e.g., Automated exposure control, adjustment of the mA and/or kV according to patient size, use of iterative reconstruction technique) copyright 2010 [employer]- All Rights Reserved Chest CT 03/24/18 22:06 IMPRESSION: Small hiatal hernia. Minor scarring in the lung bases. Complex mixed cystic and solid mass in the left adnexa/left hemipelvis with surrounding inflammation and phlegmon. There are several sigmoid diverticuli in the region and there is wall thickening of the sigmoid colon. However, whether this relates to diverticular abscess or complex ovarian neoplasm is indeterminate. The mass and inflammation results in mild to moderate left-sided hydronephrosis and hydroureter with left perinephric inflammatory change and edema. Cholelithiasis. Nodular, cirrhotic change to the liver. Splenomegaly at 16 cm. TECHNICAL DOCUMENTATION: Quality ID # [id number]: Final reports with documentation of one or more dose reduction techniques (e.g., Automated exposure control, adjustment of the mA and/or kV according to patient size, use of iterative reconstruction technique) copyright 2010 [employer]- All Rights Reserved Head CT 03/24/18 22:06 IMPRESSION: Unremarkable unenhanced CT brain TECHNICAL DOCUMENTATION: Quality ID # [id number]: Final reports with documentation of one or more dose reduction techniques (e.g., Automated exposure control, adjustment of the mA and/or kV according to patient size, use of iterative reconstruction technique) copyright 2011 [employer]- All Rights Reserved Transvaginal US 03/24/18 23:55 IMPRESSION: Complex cystic lesion of the left ovary, as above. Given findings on recent CT scan, this lesion may only be partly assessed on the ultrasound. However, this is difficult to separate from the left ovary and is worrisome for complex neoplasm. The endometrium is considered thickened for postmenopausal patient, at 9.1 mm. copyright 2010 [employer]- All Rights Reserved Assessment & Plan - Diagnosis (1) Pelvic mass Is this a current diagnosis for this admission?: Yes (2) Sepsis Qualifiers: Sepsis type: sepsis due to unspecified organism Qualified Code(s): A41.9 - Sepsis, unspecified organism Is this a current diagnosis for this admission?: Yes Plan: Continue the antibiotics. After hydration and antibiotics she will need a surgical intervention for the mass in the pelvis. The differential diagnosis could include a tubo-ovarian abscess, a ruptured diverticulum, a malignant mass from either ovarian or bowel or tubal origin. I believe it be in the patient's best interest to transfer to a tertiary care center where a team of surgeons could be available including a [employer] oncology. - Time Time Spent: 30 to 50 Minutes Anticipated discharge: Tertiary Hospital Within: within 24 hours - Plan Summary Plan Summary: Plan would be to hydrate the patient IV and treat with IV antibiotics. This will most likely not resolve her symptoms and she will need surgical intervention. This will be best accomplished with a team of surgeons including bowel and WARRANT CLERK oncology surgeons. This would be beneficial to the patient to prevent multiple surgeries and hopefully the problem can be identified identified and addressed with only one surgery.
[2018-03-25 11:01] LABS: PATH REVIEW PATHOLOGIST REVIEWED
--- NOTE | 2018-03-25 11:39 | PDOC H&P ---
History of Present Illness Admission Date/PCP: 03/25/18 02:19 Patient complains of: fever, chills with nausea and weakness History of Present Illness: MARISOL LUNA is a 63 year old female who admits to binge drinking c/o off and on low grade fever,chills with mild crampy abdominal pains since mid January 2018, C/O fever 103 with chills and nausea past 2 days. Yesterday am still with temp 102 with chills and went to an urgent care which noted temp of 102 and BP sys 80 and referred to ED. Noted to have fever 103,chills ;WBC 53.4 with Pyuria. Cultures obtained and started on iV antibiotics. CT scan and ultrasound showed a complex left pelvic mass with hydronephrosis left side. Differentials are left tubo-ovarian abscess, malignancy, ruptured diverticulitis. Consulted CREAM HAULER who felt patient best treated in a tertiary facility with [employer],urologist and colorectal surgeon. Agree with his suggestion. Past Medical History Cardiac Medical History: Denies: Coronary Artery Disease, Hypertension Pulmonary Medical History: Denies: Asthma, Chronic Obstructive Pulmonary Disease (COPD) EENT Medical History: Reports: None Neurological Medical History: Denies: Hemorrhagic CVA, Ischemic CVA, Seizures Renal/ Medical History: Denies: Chronic Kidney Disease, Nephrolithiasis Malignancy Medical History: Reports: None GI Medical History: Denies: Cirrhosis, Hepatitis Musculoskeltal Medical History: Denies: Arthritis, Fibromyalgia Skin Medical History: Denies: Eczema, Psoriasis Psychiatric Medical History: Reports: Alcohol Dependency, Tobacco Dependency Denies: Substance Abuse Traumatic Medical History: Reports: None Hematology: Denies: Anemia, Bleeding Tendencies Infectious Medical History: Reports: None Past Surgical History Past Surgical History: Reports: Orthopedic Surgery - Right ankle surgery Social History Lives with: Spouse/Significant other Smoking Status: Former Smoker Frequency of Alcohol Use: Heavy - Heavy binge drinking no history of alcohol withdrawal syndrome or seizures. Hx Recreational Drug Use: No Drugs: None Hx Prescription Drug Abuse: No Family History Family History: Reviewed & Not Pertinent Parental Family History Reviewed: Yes Children Family History Reviewed: No Sibling(s) Family History Reviewed.: No Medication/Allergy Home Medications: Fluticasone/Salmeterol [Advair 250-50 Diskus 14 Dose/Diskus] 1 inh IH Q12HP PRN 03/25/18 Ibuprofen [Advil] 400 mg PO QPMP PRN 03/25/18 Ibuprofen [Advil] 800 mg PO QAM 03/25/18 Allergies/Adverse Reactions: No Known Allergies Allergy (Verified 03/24/18 16:30) Review of Systems Constitutional: PRESENT: as per HPI Eyes: PRESENT: other - no visual/hearing changes Nose, Mouth, and Throat: PRESENT: headache(s) Cardiovascular: PRESENT: other - no chest pain/cough Gastrointestinal: PRESENT: other - denies abdominal pains Genitourinary: PRESENT: difficulty urinating - noted yesterday for the first time Neurological: PRESENT: weakness Psychiatric: PRESENT: anxiety Physical Exam Vital Signs: Temp Pulse Resp BP Pulse Ox 99.1 F 120 H 16 107/63 94 03/25/18 11:06 03/24/18 16:34 03/25/18 11:01 03/25/18 11:01 03/25/18 11:01 Intake & Output 03/24/18 03/25/18 03/26/18 06:59 06:59 06:59 Intake Total 3000 982 Balance 3000 982 Weight 103.8 kg General appearance: PRESENT: mild distress, morbidly obese Head exam: PRESENT: atraumatic Eye exam: PRESENT: conjunctiva pink Mouth exam: PRESENT: dry mucosa Neck exam: PRESENT: full ROM Respiratory exam: PRESENT: clear to auscultation dandy Cardiovascular exam: PRESENT: tachycardia Pulses: PRESENT: normal radial pulses Vascular exam: PRESENT: normal capillary refill GI/Abdominal exam: PRESENT: tenderness - mild suprapubic and LLQ tenderness Rectal exam: PRESENT: deferred Extremities exam: PRESENT: full ROM Musculoskeletal exam: PRESENT: ambulatory Neurological exam: PRESENT: alert, oriented to person, oriented to place, oriented to time, oriented to situation Psychiatric exam: PRESENT: anxious Skin exam: PRESENT: normal color, warm Results Laboratory Results: 03/24/18 20:06 03/24/18 21:24 03/24/18 03/24/18 03/24/18 20:06 20:06 21:24 WBC 53.4 H* RBC 3.62 L Hgb 10.4 L Hct 30.9 L MCV 85 MCH 28.8 MCHC 33.8 RDW 16.7 H Plt Count 326 Seg Neutrophils % Not Reportable Lymphocytes % Not Reportable Monocytes % Not Reportable Eosinophils % Not Reportable Basophils % Not Reportable Absolute Neutrophils Not Reportable Absolute Lymphocytes Not Reportable Absolute Monocytes Not Reportable Absolute Eosinophils Not Reportable Absolute Basophils Not Reportable Sodium Cancelled 134.2 L Potassium Cancelled 3.7 Chloride Cancelled 102 Carbon Dioxide Cancelled 22 Anion Gap Cancelled 10 BUN Cancelled 18 Creatinine Cancelled 1.58 H Est GFR ( Amer) Cancelled 40 L Est GFR (Non-Af Amer) Cancelled 33 L Glucose Cancelled 161 H Lactic Acid Calcium Cancelled 8.7 Total Bilirubin Cancelled 1.1 AST Cancelled 15 ALT Cancelled 11 Alkaline Phosphatase Cancelled 82 Total Protein Cancelled 6.9 Albumin Cancelled 3.6 Lipase Cancelled 19.1 L Urine Color Urine Appearance Urine pH Ur Specific [place] Urine Protein Urine Glucose (UA) Urine Ketones Urine Blood Urine Nitrite Ur Leukocyte Esterase Urine WBC (Auto) Urine RBC (Auto) 03/24/18 03/24/18 03/25/18 22:30 23:15 03:43 WBC RBC Hgb Hct MCV MCH MCHC RDW Plt Count Seg Neutrophils % Lymphocytes % Monocytes % Eosinophils % Basophils % Absolute Neutrophils Absolute Lymphocytes Absolute Monocytes Absolute Eosinophils Absolute Basophils Sodium Potassium Chloride Carbon Dioxide Anion Gap BUN Creatinine Est GFR ( Amer) Est GFR (Non-Af Amer) Glucose Lactic Acid 2.5 H 0.9 Calcium Total Bilirubin AST ALT Alkaline Phosphatase Total Protein Albumin Lipase Urine Color YELLOW Urine Appearance TURBID Urine pH 5.0 Ur Specific [place] 1.023 Urine Protein >=500 H Urine Glucose (UA) NEGATIVE Urine Ketones NEGATIVE Urine Blood NEGATIVE Urine Nitrite NEGATIVE Ur Leukocyte Esterase MODERATE H Urine WBC (Auto) >182 Urine RBC (Auto) 47 03/24/18 03/24/18 21:24 21:24 Creatine Kinase 32 CK-MB (CK-2) 0.29 Troponin I < 0.012 Impressions: Chest X-Ray 03/24/18 18:54 IMPRESSION: NO ACUTE RADIOGRAPHIC FINDING IN THE CHEST. Abdomen/Pelvis CT 03/24/18 22:06 IMPRESSION: Small hiatal hernia. Minor scarring in the lung bases. Complex mixed cystic and solid mass in the left adnexa/left hemipelvis with surrounding inflammation and phlegmon. There are several sigmoid diverticuli in the region and there is wall thickening of the sigmoid colon. However, whether this relates to diverticular abscess or complex ovarian neoplasm is indeterminate. The mass and inflammation results in mild to moderate left-sided hydronephrosis and hydroureter with left perinephric inflammatory change and edema. Cholelithiasis. Nodular, cirrhotic change to the liver. Splenomegaly at 16 cm. TECHNICAL DOCUMENTATION: Quality ID # 436: Final reports with documentation of one or more dose reduction techniques (e.g., Automated exposure control, adjustment of the mA and/or kV according to patient size, use of iterative reconstruction technique) copyright 2010 [employer] All Rights Reserved Chest CT 03/24/18 22:06 IMPRESSION: Small hiatal hernia. Minor scarring in the lung bases. Complex mixed cystic and solid mass in the left adnexa/left hemipelvis with surrounding inflammation and phlegmon. There are several sigmoid diverticuli in the region and there is wall thickening of the sigmoid colon. However, whether this relates to diverticular abscess or complex ovarian neoplasm is indeterminate. The mass and inflammation results in mild to moderate left-sided hydronephrosis and hydroureter with left perinephric inflammatory change and edema. Cholelithiasis. Nodular, cirrhotic change to the liver. Splenomegaly at 16 cm. TECHNICAL DOCUMENTATION: Quality ID # 436: Final reports with documentation of one or more dose reduction techniques (e.g., Automated exposure control, adjustment of the mA and/or kV according to patient size, use of iterative reconstruction technique) copyright 2010 [employer] All Rights Reserved Head CT 03/24/18 22:06 IMPRESSION: Unremarkable unenhanced CT brain TECHNICAL DOCUMENTATION: Quality ID # 436: Final reports with documentation of one or more dose reduction techniques (e.g., Automated exposure control, adjustment of the mA and/or kV according to patient size, use of iterative reconstruction technique) copyright 2010 [employer] All Rights Reserved Transvaginal US 03/24/18 23:55 IMPRESSION: Complex cystic lesion of the left ovary, as above. Given findings on recent CT scan, this lesion may only be partly assessed on the ultrasound. However, this is difficult to separate from the left ovary and is worrisome for complex neoplasm. The endometrium is considered thickened for postmenopausal patient, at 9.1 mm. copyright 2010 [employer] All Rights Reserved Assessment & Plan - Diagnosis (1) RANJANA (acute kidney injury) Is this a current diagnosis for this admission?: Yes (2) Alcohol abuse Is this a current diagnosis for this admission?: Yes (3) Fever Qualifiers: Fever type: unspecified Qualified Code(s): R50.9 - Fever, unspecified Is this a current diagnosis for this admission?: Yes (4) Hypotension Qualifiers: Hypotension type: unspecified hypotension type Qualified Code(s): I95.9 - Hypotension, unspecified (5) Leukocytosis Qualifiers: Leukocytosis type: bandemia Qualified Code(s): D72.825 - Bandemia Is this a current diagnosis for this admission?: Yes (6) Pelvic mass Is this a current diagnosis for this admission?: Yes (7) SIRS (systemic inflammatory response syndrome) Is this a current diagnosis for this admission?: Yes (8) Tachycardia Is this a current diagnosis for this admission?: Yes (9) Urinary tract infection Qualifiers: Urinary tract infection type: site unspecified Hematuria presence: without hematuria Qualified Code(s): N39.0 - Urinary tract infection, site not specified Is this a current diagnosis for this admission?: Yes - Time Time Spent: 50 to 70 Minutes - Inpatient Certification Medical Necessity: Need Close Monitoring Due to Risk of Patient Decompensation - Spoke with Dr Torres at [facility] who is accepting transfer of patient, Need For IV Fluids, Need for IV Antibiotics, Need for Surgery
[2018-03-25 15:24] VITALS: BP 98/61
== END | disposition short-term general hospital (02) ==
LOC: ER 16:29 → UNDOADMIN 03-25 02:19 → EH 03-25 02:19 → UNDODISIN 03-25 15:15
DX: A41.9 Sepsis, unspecified organism (principal); N39.0 Urinary tract infection, site not specified; N85.9 Noninflammatory disorder of uterus, unspecified; N13.39 Other hydronephrosis; N17.9 Acute kidney failure, unspecified; N83.202 Unspecified ovarian cyst, left side; I95.9 Hypotension, unspecified; I10 Essential (primary) hypertension; F10.21 Alcohol dependence, in remission; K44.9 Diaphragmatic hernia without obstruction or gangrene; K80.20 Calculus of gallbladder without cholecystitis without obstruction; R16.1 Splenomegaly, not elsewhere classified; R50.9 Fever, unspecified; R11.2 Nausea with vomiting, unspecified; R05 Cough; R00.0 Tachycardia, unspecified; Z87.891 Personal history of nicotine dependence
CPT/HCPCS: 99291; 96361; 96365; 36415; 87040; 87086; 82553; 82550; 83690; 85025; 87088; 80053; 81001; 84484; 87186; 83605; 87804; 71046; 76830; 93976; 70450; 71260; 74177; S0119; J7030; J7120; J2543; 93010; J0131; J0743; J1644; J2270; J2405; J2765; J3490; S0164

== ENCOUNTER 2018-07-06 11:43 | Inpatient (IN) | payer OTHER ==
[2018-07-06 13:35] LABS: APPEARANCE,URINE SLIGHTLY-CLOUDY; BILIRUBIN,URINE NEGATIVE (NEGATIVE); COLOR,URINE YELLOW; GLUCOSE, URINE NEGATIVE (NEGATIVE); KETONES,URINE TRACE mg/dL (NEGATIVE); LEUKOCYTE ESTERASE,URINE MODERATE (NEGATIVE); NITRITE,URINE NEGATIVE (NEGATIVE); PROTEIN,URINE NEGATIVE (NEGATIVE); URINE SPECIFIC GRAVITY 1.014; UROBILINOGEN,URINE NEGATIVE mg/dL (<2.0)
[2018-07-06] MEDS ORDERED: MORPHINE SULFATE 10 MG/ML INJ IV ONE (13:59)
[2018-07-06] MEDS ORDERED: ONDANSETRON HCL INJ/PF 4 MG/2 ML SDV IV ONE (13:59)
--- NOTE | 2018-07-06 14:02 | ER Document Report ---
ED General - General Chief Complaint: Abdominal Pain Stated Complaint: ABDOMINAL PAIN Time Seen by Provider: 07/06/18 12:24 TRAVEL OUTSIDE OF THE [place] IN LAST 30 DAYS: No - HPI Notes: Patient is a 63-year-old female with a history of pelvic infection with subsequent removal of her ovaries and fallopian tubes a few months ago who presents to the emergency department complaining of left lower quadrant ab dominal pain and dark-colored urine over the past 4 days. Patient has been on Cipro for presumed bladder infection, but continues to have left lower quadrant abdominal pain which is not normal for her urinary infections. Patient states that she was septic in March and was transferred [facility] because of the abscess/infection in her pelvis area. Patient states that she is otherwise eating and drinking without difficulty, does have occasional nausea. She is having loose bowel movements. Denies drug allergies. - Related Data Allergies/Adverse Reactions: No Known Allergies Allergy (Verified 07/06/18 11:54) Past Medical History - Social History Smoking Status: Current Every Day Smoker Frequency of alcohol use: binge Drug Abuse: None Family History: Reviewed & Not Pertinent Patient has suicidal ideation: No Patient has homicidal ideation: No - Past Medical History Cardiac Medical History: Denies: Hx Coronary Artery Disease, Hx Hypertension Pulmonary Medical History: Denies: Hx Asthma, Hx COPD Neurological Medical History: Denies: Hx Seizures Renal/ Medical History: Denies: Hx Peritoneal Dialysis GI Medical History: Denies: Hx Cirrhosis, Hx Hepatitis Musculoskeletal Medical History: Denies Hx Arthritis, Denies Hx Fibromyalgia Skin Medical History: Denies Hx Eczema, Denies Hx Psoriasis Infectious Medical History: Denies: Hx Hepatitis Past Surgical History: Reports: Hx Gynecologic Surgery - oophrectomy due to abscess, Hx Orthopedic Surgery - Right ankle surgery, Hx Urinary Tract Surgery - stents Review of Systems - Review of Systems -: Yes All other systems reviewed and negative Physical Exam - Vital signs Vitals: Temp Pulse Resp BP Pulse Ox 98.5 F 101 H 16 126/74 H 100 07/06/18 11:55 07/06/18 11:55 07/06/18 11:55 07/06/18 11:55 07/06/18 11:55 - Notes Notes: PHYSICAL EXAMINATION: GENERAL: Well-appearing, well-nourished and in no acute distress. HEAD: Atraumatic, normocephalic. EYES: Pupils equal round and reactive to light, extraocular movements intact, sclera anicteric, conjunctiva are normal. ENT: Nares patent and without discharge. oropharynx clear without exudates. No tonsilar hypertrophy or erythema. Moist mucous membranes. NECK: Normal range of motion, supple without lymphadenopathy LUNGS: Breath sounds clear to auscultation bilaterally and equal. No wheezes rales or rhonchi. HEART: Regular rate and rhythm without murmurs, rubs, gallops. ABDOMEN: Soft, nondistended abdomen. No guarding, no rebound. Normal bowel sounds present. No CVA tenderness bilaterally. + tenderness LLQ to palp. Musculoskeletal: FROM to passive/active. Strength 5+/5. Extremities: No cyanosis, clubbing, or edema b/l. Peripheral pulses 2+. Capillary refill less than 3 seconds. NEUROLOGICAL: Normal speech, normal gait. PSYCH: Normal mood, normal affect. SKIN: Warm, Dry, normal turgor, no rashes or lesions noted. Course - Re-evaluation Re-evalutation: 07/06/18 15:[address] Pino regarding the multilocular diverticular abscesses in the setting of diverticulitis and wbc of 12k. He will come eval the patient. She has been NPO and fluid bolus given. 07/06/18 16:36 Dr. Pino has accepted patient under his care. - Vital Signs Vital signs: Temp Pulse Resp BP Pulse Ox 98.5 F 101 H 16 126/57 H 97 07/06/18 11:55 07/06/18 11:55 07/06/18 11:55 07/06/18 14:14 07/06/18 14:14 - Laboratory Result Diagrams: 07/06/18 14:00 07/06/18 14:00 Laboratory results interpreted by me: 07/06/18 07/06/18 07/06/18 13:00 14:00 14:00 WBC 12.7 H RBC 2.95 L Hgb 9.3 L Hct 27.3 L RDW 20.1 H Seg Neutrophils % 86.1 H Lymphocytes % 8.2 L Absolute Neutrophils 11.0 H AST 10 L Albumin 3.3 L Urine Ketones TRACE H Ur Leukocyte Esterase MODERATE H Discharge - Discharge Clinical Impression: Intestinal diverticular abscess Condition: Stable Disposition: ADMITTED INPATIENT Admitting Provider: Surgicalist - Dr. Pino Unit Admitted: Surgical Floor
[2018-07-06 14:15] LABS: ABSOLUTE MONOCYTES (AUTO) 0.6 10^3/uL (0.1-1.4); BASOPHILS % (AUTO) 0.3 % (0-2); EOSINOPHILS % (AUTO) 0.3 % (0-6); HEMATOCRIT 27.3 % (36.0-47.0); HEMOGLOBIN 9.3 g/dL (12.0-15.5); LYMPHOCYTES % (AUTO) 8.2 % (13-45); MEAN CORPUSCULAR HEMOGLOBIN 31.6 pg (27.0-33.4); MEAN CORPUSCULAR HGB CONC 34.2 g/dL (32.0-36.0); MEAN CORPUSCULAR VOLUME 92 fl (80-97); MONOCYTES % (AUTO) 5.1 % (3-13); PLATELET COUNT 224 10^3/uL (150-450); RED BLOOD COUNT 2.95 10^6/uL (3.72-5.28); RED CELL DISTRIBUTION WIDTH 20.1 % (11.5-14.0); SEGMENTED NEUTROPHILS % (AUTO) 86.1 % (42-78); TOTAL CELLS COUNTED % (AUTO) 100 %; WHITE BLOOD COUNT 12.7 10^3/uL (4.0-10.5)
[2018-07-06 14:33] LABS: ALANINE AMINOTRANSFERASE 25 U/L (9-52); ALBUMIN 3.3 g/dL (3.5-5.0); ALKALINE PHOSPHATASE 82 U/L (38-126); ANION GAP 13 (5-19); ASPARTATE AMINO TRANSFERASE 10 U/L (14-36); BILIRUBIN,DIRECT 0.4 mg/dL (0.0-0.4); BILIRUBIN,TOTAL 0.8 mg/dL (0.2-1.3); BLOOD UREA NITROGEN 9 mg/dL (7-20); CARBON DIOXIDE 25 mmol/L (22-30); CHLORIDE 100 mmol/L (98-107); GLUCOSE 109 mg/dL (75-110); POTASSIUM 4.2 mmol/L (3.6-5.0); SODIUM 137.9 mmol/L (137-145); TOTAL PROTEIN 6.7 g/dL (6.3-8.2)
[2018-07-06] MEDS ORDERED: CEFTRIAXONE 1 GM/D5W RTU 1 GM/50 ML RTUPB IV ONE (15:19)
--- NOTE | 2018-07-06 15:31 | RADIOLOGY REPORT (SQ) ---
EXAM DESCRIPTION: CT ABD/PELVIS WITH IV ONLY COMPLETED DATE/TIME: 07/06/2018 3:04 pm REASON FOR STUDY: LLQ pain COMPARISON: 03/24/2018 TECHNIQUE: CT scan of the abdomen and pelvis performed using helical scanning technique with dynamic intravenous contrast injection. No oral contrast. Images reviewed with lung, soft tissue, and bone windows. Reconstructed coronal and sagittal MPR images reviewed. Delayed images for evaluation of the urinary system also acquired. All images stored on PACS. All CT scanners at this facility use dose modulation, iterative reconstruction, and/or weight based d osing when appropriate to reduce radiation dose to as low as reasonably achievable (ALARA). [facility]: Dose Right [facility]: CareDose [facility]: Dose Right [facility]: Teradose 4D [facility]: Verical CONTRAST TYPE AND DOSE: contrast/concentration: Isovue 350.00 mg/ml; Total Contrast Delivered: 100.0 ml; Total Saline Delivered: 72.0 ml RENAL FUNCTION: GFR > 60. RADIATION DOSE: CT Rad equipment meets quality standard of care and radiation dose reduction techniq ues were employed. CTDIvol: 19.5 - 21.1 mGy. DLP: 2081 mGy-cm.. LIMITATIONS: None. FINDINGS: LOWER CHEST: No significant findings. No nodules or infiltrates. LIVER: Normal size. No masses. No dilated ducts. SPLEEN: Normal size. No focal lesions. PANCREAS: No masses. No significant calcifications. No adjacent inflammation or peripancreatic fluid collections. Pancreatic duct not dilated. GALLBLADDER: Multiple calcified gallstones. ADRENAL GLANDS: No significant masses or asymmetry. RIGHT KIDNEY AND URETER: No solid masses. No significant calcifications. No hydronephrosis or hyd roureter. LEFT KIDNEY AND URETER: No solid masses. No significant calcifications. Generalized moderate hydr onephrosis and hydroureter secondary to inflammatory mass in the left pelvis to be described. AORTA AND VESSELS: No aneurysm. No dissection. Renal arteries, SMA, celiac without stenosis. RETROPERITONEUM: No retroperitoneal adenopathy, hemorrhage or masses. BOWEL AND PERITONEAL CAVITY: Diverticulosis of the sigmoid colon with changes of diverticulitis. Per icolonic fat stranding. There is also a multilocular abscess adjacent to the sigmoid colon. Contain s fluid and gas. The largest component is nearly 8 cm. An adjacent seconds component measures appro ximately 6 cm and is posterior inferior adjacent to the rectum. A 3rd smaller component measures 3.1 cm. There does appear to be communication a much the 3 abscesses. There is obstruction of the left kidney secondary to the ureter being compressed by the large abscess es. APPENDIX: Normal. PELVIS: Abscesses as described. Normal bladder. ABDOMINAL WALL: No masses. No hernias. BONES: No significant or acute findings. OTHER: No other significant finding. IMPRESSION: Large multilocular diverticular abscesses in the pelvis containing gas and air. Tyrone tere of the abscesses on the left ureter causes moderate obstruction of the left collecting system. Marked progression from previous. Gallstones. COMMENT: Pertinent findings on the imaging study reported as a CRITICAL RESULT to PAT MCNALLY PA-C at15:22 on 07/06/2018. Category of Critical Result: Multiple abscesses from diverticuli TECHNICAL DOCUMENTATION: JOB ID: [id number] Quality ID # [id number]: Final reports with documentation of one or more dose reduction techniques (e.g., Au tomated exposure control, adjustment of the mA and/or kV according to patient size, use of iterative reconstruction technique) 2010 [employer]- All Rights Reserved Reading location - IP/workstation name: [email or web address]
[2018-07-06] MEDS ORDERED: NORMAL SALINE 1000 ML 1,000 ML IV ONE (15:39)
[2018-07-06] MEDS ORDERED: ONDANSETRON HCL INJ/PF 4 MG/2 ML SDV IV PRN (16:40)
--- NOTE | 2018-07-06 16:55 | PDOC H&P ---
History of Present Illness Admission Date/PCP: July 06 Patient complains of: Abdominal pain, fever, dysuria History of Present Illness: MARISOL LUNA is a 63 year old female Presents to the emergency department via ground rescue complaining of a several day history of intermittent fever and chills. The patient was in her usual state of fair health until 1 week ago when she developed left lower quadrant pain, chills, and dysuria. She was seen in outpatient clinic and diagnosed with a urinary tract infection was started on p.o. ciprofloxacin. She took it over the last several days with only intermittent movement. She continued to have lower crampy abdominal pain and was seen in the emergency department where she was found to left lower quadrant tenderness and a leukocytosis of 12,000. A CT scan of the abdomen and pelvis without oral contrast showed multilocular weighted pelvic abscesses. Surgery was consulted and she was advised admission. Patient's immediate past medical and surgical history significant for sepsis, presenting to the emergency department at [place] in March 2018. She was found to have multiloculated abscesses in the pelvis felt secondary to ovarian in nature. She also had left hydroureter. She was sent to [facility] where she underwent left neural stenting by Dr. Cervantes, control of sepsis with IV then oral and buttocks. She did not undergo intervention for the abscesses. She subsequently 1 month later underwent bilateral salpingo[facility]oophorectomy at [facility] with benign findings. We do not have any of those records for verification. She is never undergone colonoscopy and denies family history of colorectal disease. She denies previous episodes of diverticular disease. She had a follow-up appoint with Dr. Cervantes recently and had the stent removed in May 2018. The patient is a binge alcoholic going back to 1992. She last drank heavily mid June. She does not have a local medical doctor. Past Medical History Past Medical History: Alcoholism, urinary tract infection, obesity, cirrhosis, Cardiac Medical History: Denies: Coronary Artery Disease, Hypertension Pulmonary Medical History: Denies: Asthma, Chronic Obstructive Pulmonary Disease (COPD) Neurological Medical History: Denies: Seizures GI Medical History: Denies: Cirrhosis, Hepatitis Musculoskeltal Medical History: Denies: Arthritis, Fibromyalgia Skin Medical History: Denies: Eczema, Psoriasis Hematology: Denies: Anemia, Bleeding Tendencies Past Surgical History Past Surgical History: Total knee replacement left side; hammertoe and bunion surgery right great toe; bilateral salpingo-oophorectomy laparoscopic April 2018 [facility]; ureteral left side stent placement and removal 2018 Past Surgical History: Reports: Orthopedic Surgery - Right ankle surgery Social History Information Source: Patient Lives with: Spouse/Significant other Smoking Status: Current Every Day Smoker Frequency of Alcohol Use: Heavy - Heavy binge drinking no history of alcohol withdrawal syndrome or seizures. Hx Recreational Drug Use: No Drugs: None Hx Prescription Drug Abuse: No Family History Family History: None, Reviewed & Not Pertinent Parental Family History Reviewed: Yes Children Family History Reviewed: Yes Sibling(s) Family History Reviewed.: Yes Medication/Allergy Home Medications: Fluticasone/Salmeterol [Advair 250-50 Diskus 14 Dose/Diskus] 1 inh IH Q12HP PRN 03/25/18 Ibuprofen [Advil] 400 mg PO QPMP PRN 03/25/18 Ibuprofen [Advil] 800 mg PO QAM 03/25/18 Allergies/Adverse Reactions: No Known Allergies Allergy (Verified 07/06/18 11:54) Review of Systems Constitutional: PRESENT: as per HPI Eyes: ABSENT: visual disturbances Ears: ABSENT: hearing changes Cardiovascular: ABSENT: chest pain, dyspnea on exertion, edema, orthropnea, palpitations Respiratory: ABSENT: cough, hemoptysis Gastrointestinal: PRESENT: as per HPI Genitourinary: PRESENT: other - Patient denies materia. Musculoskeletal: ABSENT: joint swelling Neurological: ABSENT: abnormal gait, abnormal speech, confusion, dizziness, focal weakness, syncope Physical Exam Vital Signs: Temp Pulse Resp BP Pulse Ox 98.5 F 101 H 16 126/57 H 97 07/06/18 11:55 07/06/18 11:55 07/06/18 11:55 07/06/18 14:14 07/06/18 14:14 Intake & Output 07/05/18 07/06/18 07/07/18 06:59 06:59 06:59 Weight 100.2 kg General appearance: PRESENT: no acute distress Head exam: PRESENT: normocephalic Eye exam: PRESENT: EOMI Mouth exam: PRESENT: dry mucosa Respiratory exam: PRESENT: clear to auscultation dandy Cardiovascular exam: PRESENT: RRR Pulses: PRESENT: normal carotid pulses, normal radial pulses, normal femoral pulses GI/Abdominal exam: PRESENT: other - Moderately tender pelvic and left lower quadrant region; scars consistent with previous surgery; no hernias. Rectal exam: PRESENT: deferred Musculoskeletal exam: PRESENT: full ROM Neurological exam: PRESENT: awake, oriented to person, oriented to place, oriented to time, oriented to situation Psychiatric exam: PRESENT: appropriate affect Skin exam: PRESENT: dry Results Laboratory Results: 07/06/18 14:00 07/06/18 14:00 07/06/18 07/06/18 07/06/18 13:00 14:00 14:00 WBC 12.7 H RBC 2.95 L Hgb 9.3 L Hct 27.3 L MCV 92 MCH 31.6 MCHC 34.2 RDW 20.1 H Plt Count 224 Seg Neutrophils % 86.1 H Lymphocytes % 8.2 L Monocytes % 5.1 Eosinophils % 0.3 Basophils % 0.3 Absolute Neutrophils 11.0 H Absolute Lymphocytes 1.0 Absolute Monocytes 0.6 Absolute Eosinophils 0.0 Absolute Basophils 0.0 Sodium 137.9 Potassium 4.2 Chloride 100 Carbon Dioxide 25 Anion Gap 13 BUN 9 Creatinine 0.70 Est GFR ( Amer) > 60 Est GFR (Non-Af Amer) > 60 Glucose 109 Calcium 9.0 Total Bilirubin 0.8 AST 10 L ALT 25 Alkaline Phosphatase 82 Total Protein 6.7 Albumin 3.3 L Urine Color YELLOW Urine Appearance SLIGHTLY-CLOUDY Urine pH 6.0 Ur Specific Orange 1.014 Urine Protein NEGATIVE Urine Glucose (UA) NEGATIVE Urine Ketones TRACE H Urine Blood NEGATIVE Urine Nitrite NEGATIVE Ur Leukocyte Esterase MODERATE H Urine WBC (Auto) 29 Urine RBC (Auto) 1 Impressions: Abdomen/Pelvis CT 07/06/18 13:59 IMPRESSION: Large multilocular diverticular abscesses in the pelvis containing gas and air. Compression of the abscesses on the left ureter causes moderate obstruction of the left collecting system. Marked progression from previous. Gallstones. Assessment & Plan - Diagnosis (1) Intestinal diverticular abscess Is this a current diagnosis for this admission?: Yes Plan: Impression: Exacerbation of chronic complicated diverticular disease, Hinchey classification 2; second episode 4 months, previously treated with IV and oral antibiotics, left urinary stent placement ; interval bilateral salpingo- oophorectomy for benign disease.; now with expanded pelvic abscesses, and persisting left hydroureter. Clinical picture complicated by left hydroureter previously treated with left ureteral stent placement and subsequent removal. Recommendations: 1. Admit to the surgical service, keep n.p.o., on IV fluids, intravenous antibiotics 2. We will set patient up for interventional radiology, tomorrow, with Dr. Kingsley Olmstead. 3. I explained to the patient that if she improves clinically, she may be a candidate for delayed sigmoid colectomy in a single stage on a prepped bowel preferably after screening colonoscopy; conversely, the patient deteriorates, she will require an emergent colectomy, possible colostomy. 4. Patient will be monitored for signs of alcohol withdrawal given her heavy history of binge alcohol consumption. 4. Patient may need urologic support possible stent placement pending ureters r esponse to percutaneous abscess drainage. (2) Cirrhosis Is this a current diagnosis for this admission?: Yes (3) Cholelithiasis Is this a current diagnosis for this admission?: Yes (4) Current non-smoker but past smoking history unknown Is this a current diagnosis for this admission?: Yes (5) Alcohol abuse Is this a current diagnosis for this admission?: Yes (6) Hydroureter Is this a current diagnosis for this admission?: Yes - Time Time Spent: 50 to 70 Minutes Critical Time spent with patient: 15-24 minutes Medications reviewed and adjusted accordingly: Yes Anticipated discharge: Home - Inpatient Certification Based on my medical assessment, after consideration of the patient's comorbidities, presenting symptoms, or acuity I expect that the services needed warrant INPATIENT care.: Yes I certify that my determination is in accordance with my understanding of Medicare's requirements for reasonable and necessary INPATIENT services [42 CFR 412.3e].: Yes Medical Necessity: Need For IV Fluids, Need for Pain Control, Need for IV Antibiotics, Need for Surgery
[2018-07-06] MEDS: ACETAMINOPHEN INJ/PF 1000 MG/100 ML SDV IV SCH ×2 (18:05→23:50)
[2018-07-06] MEDS: RINGERS SOLUTION,LACTATED 1,000 ML IV PRN (18:07)
[2018-07-06 19:24] LABS: INTERNATIONAL RATION (INR) 1.27; PROTHROMBIN TIME 16.5 SEC (11.4-15.4)
[2018-07-06 19:25] LABS: PARTIAL THROMBOPLASTIN TIME 37.5 SEC (23.5-35.8)
[2018-07-06] MEDS: PIPERACILLIN SODIUM/TAZOBACTAM 3.375 GM in NORMAL SALINE 100 ML IV SCH (22:54)
[2018-07-07] MEDS: ACETAMINOPHEN INJ/PF 1000 MG/100 ML SDV IV SCH ×2 (10:30→16:50)
[2018-07-07] MEDS: PIPERACILLIN SODIUM/TAZOBACTAM 3.375 GM in NORMAL SALINE 100 ML IV SCH ×3 (10:30→22:03)
[2018-07-07] MEDS ORDERED: MIDAZOLAM 2 MG/2 ML INJ ONE (11:27)
[2018-07-07] MEDS ORDERED: FENTANYL CITRATE INJ/PF 100 MCG/2 ML AMPUL ONE (11:27)
[2018-07-07] MEDS: RINGERS SOLUTION,LACTATED 1,000 ML IV PRN ×2 (13:58→19:50)
[2018-07-07] MEDS: ACETAMINOPHEN 1,000 MG/100 ML RTUPB IV SCH ×2 (14:07→22:03)
--- NOTE | 2018-07-07 14:07 | RADIOLOGY REPORT (SQ) ---
EXAM DESCRIPTION: CT GUIDED PERCUT DRAIN W/CATH COMPLETED DATE/TIME: 07/07/2018 12:41 pm REASON FOR STUDY: MULTILOCULAR DIVERTICULAR ABSCESSESS IN PELVIS COMPARISON: CT abdomen pelvis 03/24/2018, 07/06/2018 TECHNIQUE: After obtaining informed consent and explaining the risks and benefits of conscious sedat ion,the patient agreed to the procedure. The patient was brought to the CT suite and was placed supin e on the CT gurney. The patient was prepped and draped in the usual sterile fashion. Axial images we re obtained for targeting of theleft lower quadrant abscess. An appropriate access site was selected. IV conscious sedation was administered and physician direction by the registered nurse using 1.5 mill igrams of Versed and 125 micrograms of fentanyl. Physiologic monitoring was provided before, during, and after sedation. The total sedation time was 30 minutes. Documentation face to face time, the performing proceduralist, spent monitoring the patient: [address] of the pelvis was performed to localize an approach for the left lower quadrant abs cess drainage. A percutaneous site was marked. Time out was performed. After skin prep and local lidocaine for skin and deep tissue anesthesia, a 20 cm long 18 gauge needl e was used to access the left lower quadrant abscess cavity. Prompt return of purulent material. 0. 38 guidewire placed into the abscess cavity, the tract was dilated with a 7 Samoan and 10 Samoan dila tor, and a 10 Samoan locking pigtail catheter was placed in the left pelvis in the abscess cavity. P erihilar material was aspirated and sent to the lab for Gram stain culture and sensitivity. No immediate postprocedure complications. Total of 12.[address] fluoro was used. 69 CT Fluoroscopic images were obtained and saved to PACS. All CT scanners at this facility use dose modulation, iterative reconstruction, and/or weight based d osing when appropriate to reduce radiation dose to as low as reasonably achievable (ALARA). [facility]: Dose Right [facility]: CareDose [facility]: Dose Right [facility]: Teradose 4D [facility]: Smart Technologies RADIATION DOSE: CT Rad equipment meets quality standard of care and radiation dose reduction techniq ues were employed. CTDIvol: 4.0 - 20.3 mGy. DLP: 1096 mGy-cm. mGy. LIMITATIONS: None. FINDINGS: CT-guided left lower quadrant pelvic abscess drainage with 10 Samoan [address] Aspirated material was sent for Gram stain culture and sensitivity CT fluoro total time 12.2 seconds IV conscious sedation as above IMPRESSION: CT GUIDED LEFT LOWER QUADRANT DIVERTICULAR ABSCESS DRAINAGE CATHETER PLACEMENT. IV CON SCIOUS SEDATION, CT FLUORO. CULTURES OF THE ASPIRATE ARE PENDING. NO IMMEDIATE COMPLICATIONS. COMMENT: Patient medication list reviewed:Yes- Quality ID# [id number]:Eligible professional attests to docu menting in the medical record they obtained, updated, or reviewed the patient's current medications.. Quality ID 145: Final reports for procedures using fluoroscopy that document radiation exposure kaitlynn jonathan, or exposure time and number of fluorographic images (if radiation exposure indices are not avail able) TECHNICAL DOCUMENTATION: JOB ID: [id number] Quality ID # [id number]: Final reports with documentation of one or more dose reduction techniques (e.g., A utomated exposure control, adjustment of the mA and/or kV according to patient size, use of iterative reconstruction technique) 2010 [employer]- All Rights Reserved Reading location - IP/workstation name: [email or web address]
[2018-07-07] MEDS: HYDROMORPHONE HCL INJ/PF 2 MG/ML AMPULE IV PRN ×2 (18:27→22:04)
--- NOTE | 2018-07-07 20:32 | PDOC PROGRESS REPORT ---
Subjective Progress Note for:: 07/07/18 Subjective:: feels better after perc drainage Reason For Visit: COMPLICATED DIVERTICULITIS pelvic abscess Physical Exam Vital Signs: Temp Pulse Resp BP Pulse Ox 97.9 F 76 18 129/55 H 98 07/07/18 16:01 07/07/18 16:01 07/07/18 16:01 07/07/18 16:01 07/07/18 16:01 Intake & Output 07/06/18 07/07/18 07/08/18 06:59 06:59 06:59 Intake Total 2100 1300 Output Total 40 Balance 2100 1260 Weight 101.2 kg General appearance: PRESENT: no acute distress Head exam: PRESENT: normocephalic Eye exam: PRESENT: EOMI Ear exam: PRESENT: normal external ear exam Mouth exam: PRESENT: moist Neck exam: PRESENT: full ROM Respiratory exam: PRESENT: clear to auscultation dandy Cardiovascular exam: PRESENT: RRR Pulses: PRESENT: normal radial pulses, normal femoral pulses GI/Abdominal exam: PRESENT: tenderness, other - tenderness around drain site drain with purulent fluid in bag min abd pain Rectal exam: PRESENT: deferred Extremities exam: PRESENT: full ROM Musculoskeletal exam: PRESENT: full ROM Neurological exam: PRESENT: alert, awake, oriented to person, oriented to place Psychiatric exam: PRESENT: appropriate affect Skin exam: PRESENT: dry Results Laboratory Results: 07/06/18 14:00 07/06/18 14:00 Impressions: Abdomen/Pelvis CT 07/06/18 13:59 IMPRESSION: Large multilocular diverticular abscesses in the pelvis containing gas and air. Compression of the abscesses on the left ureter causes moderate obstruction of the left collecting system. Marked progression from previous. Gallstones. Percutaneous Drainage 07/07/18 00:00 IMPRESSION: CT GUIDED LEFT LOWER QUADRANT DIVERTICULAR ABSCESS DRAINAGE CATHETER PLACEMENT. IV CONSCIOUS SEDATION, CT FLUORO. CULTURES OF THE ASPIRATE ARE PENDING. NO IMMEDIATE COMPLICATIONS. Assessment & Plan - Plan Summary Plan Summary: pelvic abscess with spont drainage via vagina s/p perc drainage prob perforated diverticulitis plan cont iv abx cont only ice chips for now. await return of bowel function.
[2018-07-08] MEDS: RINGERS SOLUTION,LACTATED 1,000 ML IV PRN (03:18)
[2018-07-08] MEDS: ACETAMINOPHEN 1,000 MG/100 ML RTUPB IV SCH ×4 (03:18→20:07)
[2018-07-08] MEDS: HYDROMORPHONE HCL INJ/PF 2 MG/ML AMPULE IV PRN ×4 (03:18→22:18)
[2018-07-08] MEDS: PIPERACILLIN SODIUM/TAZOBACTAM 3.375 GM in NORMAL SALINE 100 ML IV SCH ×3 (06:46→22:18)
--- NOTE | 2018-07-08 13:59 | PDOC PROGRESS REPORT ---
Subjective Progress Note for:: 07/08/18 Subjective:: This is a 63-year-old female with complicated diverticulitis and pelvic abscess. She underwent percutaneous drainage of this abscess several days ago. Her pain has significantly improved. She is ambulating without difficulty. The patient is hungry, and passing small amounts of flatus. She denies chest pain, shortness of breath, headache, nausea, vomiting, melena, hematochezia, fatigue, malaise, dizziness, blurry vision. Reason For Visit: COMPLICATED DIVERTICULITIS Physical Exam Vital Signs: Temp Pulse Resp BP Pulse Ox 97.6 F 77 14 121/58 L 97 07/08/18 12:15 07/08/18 12:15 07/08/18 12:15 07/08/18 12:15 07/08/18 12:15 Intake & Output 07/07/18 07/08/18 07/09/18 06:59 06:59 06:59 Intake Total 2100 2600 1200 Output Total 80 Balance 2100 2520 1200 Weight 101.2 kg 101.2 kg General appearance: PRESENT: no acute distress, cooperative Head exam: PRESENT: atraumatic, normocephalic Eye exam: PRESENT: EOMI, PERRLA. ABSENT: scleral icterus Mouth exam: PRESENT: moist, neck supple Neck exam: ABSENT: meningismus, tenderness, thyromegaly, tracheal deviation Respiratory exam: PRESENT: clear to auscultation dandy, unlabored. ABSENT: chest wall tenderness, tachypnea, wheezes Cardiovascular exam: PRESENT: RRR Pulses: PRESENT: normal radial pulses GI/Abdominal exam: PRESENT: soft, tenderness - Very mild left lower quadrant tenderness, other - Left lower quadrant percutaneous drainage catheter in place. ABSENT: distended, firm, guarding Rectal exam: PRESENT: deferred Extremities exam: ABSENT: clubbing Musculoskeletal exam: ABSENT: deformity Neurological exam: PRESENT: alert, awake, oriented to person, oriented to place, oriented to time, oriented to situation Psychiatric exam: ABSENT: agitated, anxious, depressed Focused psych exam: ABSENT: delusional Skin exam: ABSENT: cyanosis, erythema, jaundice Results Laboratory Results: 07/06/18 14:00 07/06/18 14:00 07/06/18 13:00 Clean Catch Midstream Urine Culture - Final 4,000 col/ml Impressions: Abdomen/Pelvis CT 07/06/18 13:59 IMPRESSION: Large multilocular diverticular abscesses in the pelvis containing gas and air. Compression of the abscesses on the left ureter causes moderate obstruction of the left collecting system. Marked progression from previous. Gallstones. Percutaneous Drainage 07/07/18 00:00 IMPRESSION: CT GUIDED LEFT LOWER QUADRANT DIVERTICULAR ABSCESS DRAINAGE CATHETER PLACEMENT. IV CONSCIOUS SEDATION, CT FLUORO. CULTURES OF THE ASPIRATE ARE PENDING. NO IMMEDIATE COMPLICATIONS. Assessment & Plan - Diagnosis (1) Intestinal diverticular abscess Is this a current diagnosis for this admission?: Yes - Plan Summary Plan Summary: This is a 63-year-old female with complicated diverticulitis. She is status post percutaneous drainage catheter placement. She is doing well. Her pain is improving. She is passing flatus. I will start the patient on a full liquid diet today. Hopefully we can advance this rapidly. The patient will require a colonoscopy in 6 to 8 weeks to ensure that her contained perforation was not due to a malignancy. I have discussed elective sigmoid colon resection with the patient at length. Due to her history of complicated diverticulitis, this should strongly be considered. Continue antibiotics. Continue percutaneous drainage catheter. Further recommendations and treatment will depend on the patient's clinical course. Obtain laboratory studies tomorrow.
[2018-07-09] MEDS: RINGERS SOLUTION,LACTATED 1,000 ML IV PRN (00:32)
[2018-07-09] MEDS: ACETAMINOPHEN 1,000 MG/100 ML RTUPB IV SCH ×3 (02:14→16:26)
[2018-07-09] MEDS: HYDROMORPHONE HCL INJ/PF 2 MG/ML AMPULE IV PRN ×3 (04:38→21:35)
[2018-07-09 06:05] LABS: HEMATOCRIT 22.8 % (36.0-47.0); MEAN CORPUSCULAR HEMOGLOBIN 32.1 pg (27.0-33.4); MEAN CORPUSCULAR VOLUME 92 fl (80-97); PLATELET COUNT 243 10^3/uL (150-450); RED BLOOD COUNT 2.49 10^6/uL (3.72-5.28); RED CELL DISTRIBUTION WIDTH 20.6 % (11.5-14.0); WHITE BLOOD COUNT 4.6 10^3/uL (4.0-10.5)
[2018-07-09 06:19] LABS: ANION GAP 7 (5-19); BLOOD UREA NITROGEN 6 mg/dL (7-20); CALCIUM 8.6 mg/dL (8.4-10.2); CARBON DIOXIDE 24 mmol/L (22-30); CHLORIDE 110 mmol/L (98-107); GLUCOSE 86 mg/dL (75-110); POTASSIUM 3.6 mmol/L (3.6-5.0); SODIUM 141.4 mmol/L (137-145)
[2018-07-09 06:37] LABS: ABSOLUTE LYMPHOCYTES# (MANUAL) 1.7 10^3/uL (0.5-4.7); ABSOLUTE NEUTROPHILS# (MANUAL) 2.7 10^3/uL (1.7-8.2); BAND NEUTROPHILS % (MANUAL) 2 % (3-5); BASOPHILS % (MANUAL) 1 % (0-2); EOSINOPHILS % (MANUAL) 1 % (0-6); LYMPHOCYTES % (MANUAL) 37 % (13-45); MONOCYTES % (MANUAL) 1 % (3-13); SEGMENTED NEUTROPHILS % (MAN) 57 % (42-78); TOTAL CELLS COUNTED 100
[2018-07-09] MEDS: PIPERACILLIN SODIUM/TAZOBACTAM 3.375 GM in NORMAL SALINE 100 ML IV SCH ×3 (06:37→21:36)
[2018-07-09 06:38] LABS: PLATELET COMMENT ADEQUATE
[2018-07-09 06:41] LABS: ANISOCYTOSIS 2+; HYPOCHROMASIA 2+; OVALOCYTES 1+; POLYCHROMASIA 1+
[2018-07-09 06:42] LABS: TEAR DROP CELLS 1+
--- NOTE | 2018-07-09 17:29 | PDOC PROGRESS REPORT ---
Subjective Progress Note for:: 07/09/18 Subjective:: Hungry. Had some liquid stools. Reason For Visit: COMPLICATED DIVERTICULITIS Physical Exam Vital Signs: Temp Pulse Resp BP Pulse Ox 98.3 F 78 18 137/73 H 99 07/09/18 16:45 07/09/18 16:45 07/09/18 16:45 07/09/18 16:45 07/09/18 16:45 Intake & Output 07/08/18 07/09/18 07/10/18 06:59 06:59 06:59 Intake Total 2600 2949 1920 Output Total 80 Balance 2520 2949 1920 Weight 101.2 kg 101.2 kg Exam: Drain with minimal drainage Abdomen is soft with minimal tenderness around catheter site Results Laboratory Results: 07/09/18 05:05 07/09/18 05:05 07/09/18 07/09/18 05:05 05:05 WBC 4.6 RBC 2.49 L Hgb 8.0 L Hct 22.8 L MCV 92 MCH 32.1 MCHC 35.0 RDW 20.6 H Plt Count 243 Seg Neutrophils % Not Reportable Lymphocytes % Not Reportable Monocytes % Not Reportable Eosinophils % Not Reportable Basophils % Not Reportable Absolute Neutrophils Not Reportable Absolute Lymphocytes Not Reportable Absolute Monocytes Not Reportable Absolute Eosinophils Not Reportable Absolute Basophils Not Reportable Sodium 141.4 Potassium 3.6 Chloride 110 H Carbon Dioxide 24 Anion Gap 7 BUN 6 L Creatinine 0.67 Est GFR ( Amer) > 60 Est GFR (Non-Af Amer) > 60 Glucose 86 Calcium 8.6 Impressions: Abdomen/Pelvis CT 07/06/18 13:59 IMPRESSION: Large multilocular diverticular abscesses in the pelvis containing gas and air. Compression of the abscesses on the left ureter causes moderate obstruction of the left collecting system. Marked progression from previous. Gallstones. Percutaneous Drainage 07/07/18 00:00 IMPRESSION: CT GUIDED LEFT LOWER QUADRANT DIVERTICULAR ABSCESS DRAINAGE CATHETER PLACEMENT. IV CONSCIOUS SEDATION, CT FLUORO. CULTURES OF THE ASPIRATE ARE PENDING. NO IMMEDIATE COMPLICATIONS. Assessment & Plan - Time Time Spent with patient: 15-24 minutes - Inpatient Certification Medical Necessity: Need for IV Antibiotics - Plan Summary Plan Summary: Irrigate catheter per X Ray Increase diet F-up CT if no drainage from catheter Continue IV antibiotics
[2018-07-10] MEDS: PIPERACILLIN SODIUM/TAZOBACTAM 3.375 GM in NORMAL SALINE 100 ML IV SCH ×3 (05:37→21:41)
[2018-07-10] MEDS: HYDROMORPHONE HCL INJ/PF 2 MG/ML AMPULE IV PRN ×3 (05:44→22:39)
--- NOTE | 2018-07-10 13:44 | RADIOLOGY REPORT (SQ) ---
EXAM DESCRIPTION: CT ABD/PELVIS ORAL ONLY COMPLETED DATE/TIME: 07/10/2018 12:59 pm REASON FOR STUDY: ABD. ABSCESS COMPARISON: 03/24/2018, 07/06/2018, 07/07/2018 CT abdomen/pelvis exams TECHNIQUE: CT scan of the abdomen and pelvis performed without intravenous or oral contrast. Images reviewed with lung, soft tissue, and bone windows. Reconstructed coronal and sagittal MPR images revi ewed. All images stored on PACS. All CT scanners at this facility use dose modulation, iterative reconstruction, and/or weight based d osing when appropriate to reduce radiation dose to as low as reasonably achievable (ALARA). [facility]: Dose Right [facility]: CareDose [facility]: Dose Right [facility]: Teradose 4D [facility]: [employer] RADIATION DOSE: CT Rad equipment meets quality standard of care and radiation dose reduction techniq ues were employed. CTDIvol: 22.4 mGy. DLP: 1242 mGy-cm.mGy. LIMITATIONS: None. FINDINGS: Left lower quadrant diverticular abscess drainage catheter is in place. This is in a mack lar location as on post placement CT images from 07/07/2018. Just medial to the pigtail catheter loop, a thin rim fluid collection persists measuring 4 cm AP by 1 cm transverse with an air bubble present on axial image 70. The pelvic cul-de-sac and left adnexal abscess pockets have resolved. There is an adjacent 10 cm long segment of inflamed colon with diverticuli present from diverticuliti s on axial images 69-73. No extravasation of oral contrast is seen on today's study in this area. Remainder of the gastrointestinal tract is otherwise unremarkable. No bowel obstruction. No free in traperitoneal air or fluid. Normal appendix. These findings were discussed with Dr. Banks. We will leave the left lower quadrant drainage juan carlos ter in for another 24-48 hours. There is a new accordion suction bag on the catheter as of 1300 hour s today, so that we can further monitor how much material this drain produces. LOWER CHEST: No significant findings. No nodules or infiltrates. NON-CONTRASTED LIVER, SPLEEN, ADRENALS: Evaluation limited by lack of IV contrast. No identified sign ificant masses. Spleen 14 cm in length PANCREAS: No masses. No peripancreatic inflammatory changes. GALLBLADDER: Calcified gallstones RIGHT KIDNEY AND URETER: No suspicious masses. Assessment limited by lack of IV contrast. No signif icant calcifications. No hydronephrosis or hydroureter. LEFT KIDNEY AND URETER: No suspicious masses. Assessment limited by lack of IV contrast. No signifi cant calcifications. There is moderate left hydronephrosis and upper hydroureter. The ureter cours es through an area of pelvic inflammation related to the diverticular disease. Left hydronephrosis i s similar compared to CT abdomen pelvis 07/06/2018. AORTA AND RETROPERITONEUM: No aneurysm. No retroperitoneal masses or adenopathy. BOWEL AND PERITONEAL CAVITY: As above APPENDIX: As above PELVIS, BLADDER, AND ABDOMINAL WALL:Normal size female pelvic organs. Persistent air bubble in the l eft adnexal without abscess. No cul-de-sac free fluid. Small air bubble in the vagina persists from possible colovaginal fistula BONES: No significant findings. OTHER: No other significant finding. IMPRESSION: Significant decrease in the abscesses in the left lower quadrant and pelvis compared to CT exam 07/06/2018 The left lower quadrant pigtail catheter will be continued for another 2448 hours, with a new accordi on suction bag on the catheter, to monitor how much material this drain produces Findings discussed with Dr. Banks COMMENT: Quality ID # [id number]: Final reports with documentation of one or more dose reduction techniques (e.g., Automated exposure control, adjustment of the mA and/or kV according to patient size, use of iterative reconstruction technique) TECHNICAL DOCUMENTATION: JOB ID: [id number] [employer]- All Rights Reserved Reading location - IP/workstation name: [email or web address]
[2018-07-10] MEDS ORDERED: ACETAMINOPHEN 325 MG TABLET PO ONE (15:00)
--- NOTE | 2018-07-10 19:23 | PDOC PROGRESS REPORT ---
Subjective Progress Note for:: 07/10/18 Subjective:: No pains. Has some BM Reason For Visit: COMPLICATED DIVERTICULITIS Physical Exam Vital Signs: Temp Pulse Resp BP Pulse Ox 98.3 F 78 19 136/57 H 100 07/10/18 16:00 07/10/18 16:00 07/10/18 16:00 07/10/18 16:00 07/10/18 16:00 Intake & Output 07/09/18 07/10/18 07/11/18 06:59 06:59 06:59 Intake Total 2949 2820 1120 Balance 2949 2820 1120 Weight 101.2 kg 101.2 kg Exam: Abdomen is soft with mild tenderness around drainage catheter Drainage catheter around 25 ccs Results Laboratory Results: 07/09/18 05:05 07/09/18 05:05 07/07/18 12:25 Abdomen - Abscess Gram Stain - Final Impressions: Percutaneous Drainage 07/07/18 00:00 IMPRESSION: CT GUIDED LEFT LOWER QUADRANT DIVERTICULAR ABSCESS DRAINAGE CATHETER PLACEMENT. IV CONSCIOUS SEDATION, CT FLUORO. CULTURES OF THE ASPIRATE ARE PENDING. NO IMMEDIATE COMPLICATIONS. Abdomen/Pelvis CT 07/10/18 00:00 IMPRESSION: Significant decrease in the abscesses in the left lower quadrant and pelvis compared to CT exam 07/06/2018 The left lower quadrant pigtail catheter will be continued for another 2448 hours, with a new accordion suction bag on the catheter, to monitor how much material this drain produces Findings discussed with Dr. Banks Assessment & Plan - Diagnosis (1) Intestinal diverticular abscess Is this a current diagnosis for this admission?: Yes - Time Time Spent with patient: 15-24 minutes - Inpatient Certification Medical Necessity: Need for IV Antibiotics - Plan Summary Plan Summary: Had repeat CT scan today . D/W Dr Cervantes(Radiologist). Still with very small residual abscess. Will leave drain and continue Antibiotics another 48-72 hrs.
[2018-07-11 00:21] VITALS: BP 130/62
[2018-07-11] MEDS: PIPERACILLIN SODIUM/TAZOBACTAM 3.375 GM in NORMAL SALINE 100 ML IV SCH (05:13)
[2018-07-11] MEDS ORDERED: ACETAMINOPHEN 325 MG TABLET PO PRN (05:36)
[2018-07-11 06:05] LABS: HEMATOCRIT 23.5 % (36.0-47.0); MEAN CORPUSCULAR HEMOGLOBIN 31.4 pg (27.0-33.4); MEAN CORPUSCULAR VOLUME 93 fl (80-97); PLATELET COUNT 251 10^3/uL (150-450); RED BLOOD COUNT 2.54 10^6/uL (3.72-5.28); WHITE BLOOD COUNT 4.6 10^3/uL (4.0-10.5)
[2018-07-11 06:37] LABS: ABSOLUTE MONOCYTES # (MANUAL) 0.4 10^3/uL (0.1-1.4); ABSOLUTE NEUTROPHILS# (MANUAL) 2.2 10^3/uL (1.7-8.2); BASOPHILS % (MANUAL) 0 % (0-2); EOSINOPHILS % (MANUAL) 1 % (0-6); LYMPHOCYTES % (MANUAL) 44 % (13-45); MONOCYTES % (MANUAL) 8 % (3-13); SEGMENTED NEUTROPHILS % (MAN) 47 % (42-78); TOTAL CELLS COUNTED 100
[2018-07-11 06:39] LABS: ANISOCYTOSIS 3+; HELMET CELLS 1+; OVALOCYTES 1+; PLATELET COMMENT ADEQUATE; POIKILOCYTOSIS 2+; TEAR DROP CELLS SLIGHT; TOXIC GRANULATION 1+
--- NOTE | 2018-07-11 14:34 | DISCHARGE SUMMARY E ---
Discharge Summary NAME: MARISOL LUNA : 1955 AGE: 63Y ADMITTED: 07/06/2018 DISCHARGED: 07/11/2018 FINAL DIAGNOSES: 1. Diverticular abscesses. 2. History of alcoholic binge drinking. PROCEDURE DONE: On 07/07/2018 percutaneous placement of drainage catheter by IR. HOSPITAL COURSE: This is a 53-year-old female admitted for about a second episode of diverticulitis. She had a CAT scan of the abdomen on admission, which showed diverticular abscesses. Percutaneous drainage of the abscesses was done on 07/07/2018. The patient's white count was about 12.7 on admission and came down to normal post placement of drainage catheter. Also her abdominal pains practically subsided after placement of the drainage catheter. The drainage from the catheter slowed down to about 25 mL on 07/10/2018 and a followup CAT scan was done, which showed practically almost complete resolution of all the abscesses. The drain was left in place for another 24 hours after discussion with the radiologist. On the day of discharge there is no drainage. The reservoir was changed by the radiologist on 07/10/2018. Also, her pains practically subsided and having a bowel movement and tolerating regular diet. The drain was then removed on 07/11/2018 and the patient was discharged on p.o. Cipro and Flagyl for at least another 10 days. The patient will be followed up in the surgical clinic in 2 weeks. Any symptoms of recurrent fever or increasing pains, the patient is to come back to the ED. DICTATING PHYSICIAN: SHIRA NIÑO M.D. [id number] Y#: [id number] ID: [id number] JOB#: [id number] ACCT: [id number] cc:Román PEREZ M.D. >
== END 2018-07-11 09:05 | disposition home or self-care (01) | DRG 392 ==
LOC: ER 11:43 → EH 16:56 → 4N 21:37
PROVIDERS: ADMIT Surgery; ATTEND Surgery
PROC: 0W9J30Z Drainage of Pelvic Cavity with Drainage Device, Percutaneous Approach (ICD-10-PCS; principal; 2018-07-07)
DX: K57.20 Diverticulitis of large intestine with perforation and abscess without bleeding (principal); N13.4 Hydroureter; Z68.41 Body mass index [BMI] 40.0-44.9, adult; E66.9 Obesity, unspecified; Z96.652 Presence of left artificial knee joint; F10.10 Alcohol abuse, uncomplicated; K74.60 Unspecified cirrhosis of liver; K80.20 Calculus of gallbladder without cholecystitis without obstruction; Z90.722 Acquired absence of ovaries, bilateral; Z87.891 Personal history of nicotine dependence
CPT/HCPCS: 36415; 74176; 74177; 75989; 80048; 80053; 81001; 82962; 85025; 85610; 85730; 87070; 87075; 87077; 87086; 87186; 87205; 96374; 96375; 99285; C1729; C1769; C1894; J0131; J1170; J2250; J2270; J2405; J2543; J3010; J7030; J7050; J7120

== ENCOUNTER 2018-09-10 06:58 | Day surgery (SDC) | payer OTHER ==
[2018-09-10] MEDS ORDERED: ONDANSETRON HCL INJ/PF 4 MG/2 ML SDV ONE (07:12)
[2018-09-10] MEDS ORDERED: NALOXONE HCL INJ/PF 0.4 MG/1 ML SDV ONE (07:12)
[2018-09-10] MEDS ORDERED: FENTANYL CITRATE INJ/PF 100 MCG/2 ML AMPUL ONE (07:12)
[2018-09-10] MEDS ORDERED: DIPHENHYDRAMINE HCL 50 MG/ML VIAL ONE (07:12)
[2018-09-10] MEDS ORDERED: EPINEPHRINE INJ 1 MG/10 ML DISP.SYRIN ONE (07:13)
[2018-09-10] MEDS ORDERED: FLUMAZENIL INJ 0.5 MG/5 ML VIAL ONE (07:13)
[2018-09-10] MEDS ORDERED: GLUCAGON,HUMAN RECOMB 1 MG INJ ONE (07:13)
[2018-09-10] MEDS: MIDAZOLAM 2 MG/2 ML INJ ONE ×3 (07:38→07:51)
--- NOTE | 2018-09-10 08:14 | Discharge Summary ---
Discharge Summary (SDC) - Discharge Final Diagnosis: History of complicated diverticulitis pelvic abscess; status post DUANE/BSO Date of Surgery: 09/10/18 Discharge Date: 09/10/18 Condition: Good Treatment or Instructions: [facility] [address] [address] POST ENDOSCOPY DISCHARGE INSTRUCTIONS 1. Diet: Start clear liquids that a regular diet as tolerated. 2. Resume all preoperative medications. All oral anticoagulants and aspirins can be resumed 24 hours after procedure. 3. If a polypectomy was performed some bleeding per rectum may occur. This should stop within 3 days. If not, please contact the office. 4. If you had a colonoscopy you may experience some bloating and delayed return of normal bowel function for several days, your regular bowel movement pattern should resume within a week. 5. Please contact [facility] at to make an appointment with Dr. Pino for 1 to 3 weeks following procedure. 6. If you have any questions or concerns regarding your care,treatment plan or follow up, please contact our office. 7. Patient to follow-up with [facility] in 2 weeks. She will be scheduled for an air-contrast barium enema due to incomplete colonoscopy. Discharge Diet: As Tolerated Discharge Activity: Activity As Tolerated Home Care Assistance: None Needed Report the Following to Your Physician Immediately: Shortness of Breath, Increase in Pain, Fever over 101 Degrees
--- NOTE | 2018-09-10 08:20 | Operative Report ---
Operative Report DATE OF SURGERY: 09/10/18 PREOPERATIVE DIAGNOSIS: History of complicated diverticulitis with pelvic absce ss; status post DUANE/BSO POSTOPERATIVE DIAGNOSIS: Same. Colonoscopic evaluation to 30 cm from anal verge; Incomplete colonoscopy secondary to inability to advance scope past s igmoid colon OPERATION: Colonoscopic evaluation to 30 cm from anal verge SURGEON: KIMBERLY FELDMAN ANESTHESIA: Moderate Sedation TISSUE REMOVED OR ALTERED: None COMPLICATIONS: None ESTIMATED BLOOD LOSS: None INTRAOPERATIVE FINDINGS: See below PROCEDURE: The patient was taken to the holding area to the endoscopy suite on the fifth floor where appropriate monitoring devices were attached. She is placed in the left lateral decubitus position Surgical plan and surgical timeout were conducted. Appropriate level of sedation induced. Rectal exam was performed. There was no visible or palpable anal pathology. The flexible pediatric colonoscope was advanced to the anal rectal canal until 30 cm. Unfortunately the scope could not be advanced through this area due to inability to visualize the lumen, and see more proximal colon. We manipulated the patient in multiple positions, and provided external support, but this was unsuccessful; the bowel prep was excellent to this point, and sedation appropriate; the consensus was that the pt. had post inflammatory changes, likely adhesions causing the fixation of the bowel preventing safe scope advancement. The procedure was aborted; scope w/drawn uneventfully. Pt tolerated procedure well; she will be set up for an Air contrast BE in the future.
[2018-09-10 09:15] VITALS: BP 152/90
== END 2018-09-10 09:19 | disposition home or self-care (01) ==
LOC: END 06:58
PROVIDERS: ATTEND Surgery
DX: Z09 Encounter for follow-up examination after completed treatment for conditions other than malignant neoplasm (principal); Z87.19 Personal history of other diseases of the digestive system; Z90.710 Acquired absence of both cervix and uterus; J45.909 Unspecified asthma, uncomplicated; Z87.891 Personal history of nicotine dependence; E66.9 Obesity, unspecified; Z68.41 Body mass index [BMI] 40.0-44.9, adult
CPT/HCPCS: J2250; J3010; J0171; J1200; J1610; J2310; J2405; J3490

== ENCOUNTER → 2018-09-14 | Outpatient (CLI) | payer OTHER ==
--- NOTE | 2018-09-14 16:14 | RADIOLOGY REPORT (SQ) ---
EXAM DESCRIPTION: BARIUM ENEMA W/AIR COMPLETED DATE/TIME: 09/14/2018 11:43 am REASON FOR STUDY: K57.80 DVTRCLI OF INTEST, PART UNSP, W PERF AND ABSCESS W/O BLEED K57.80 DVTRCLI OF INTEST, PART UNSP, W PERF AND ABSCESS W/O COMPARISON: None. FLUOROSCOPY TIME: 3.1 minutes 19 images saved to PACS. TECHNIQUE: Following retrograde filling of the colon with barium and air, fluoroscopic spot and over head imaging of the colon was obtained and saved to PACS. LIMITATIONS: None. FINDINGS: MANAGER ENGLISH KUB: Normal abdominal film with adequate bowel prep. CECUM: Normal mucosa without intraluminal filling defects, intrinsic or extrinsic masses, or lesions. Barium filled appendix and distal ileum identified. ASCENDING COLON: Normal mucosa without intraluminal filling defects, intrinsic or extrinsic masses, o r lesions. Scattered diverticuli. TRANSVERSE COLON: Normal mucosa without intraluminal filling defects, intrinsic or extrinsic masses, or lesions. Scattered diverticuli. DESCENDING COLON: Normal mucosa without intraluminal filling defects, intrinsic or extrinsic masses, or lesions. Scattered diverticuli. SIGMOID COLON: Irregular narrowing in mid sigmoid possibly related to prior abscess site. Scattered diverticuli. RECTUM: Normal mucosa without intraluminal filling defects, intrinsic or extrinsic masses, or lesions . POST EVAC: Near complete evacuation of barium with no additional findings. OTHER: No other significant finding. IMPRESSION: IRREGULAR AREA OF NARROWING IN SIGMOID COLON PROBABLY RELATED TO PRIOR ABSCESS SITE. SC ATTERED DIVERTICULI SEEN THROUGHOUT THE COLON. COMMENT: Quality ID [id number]: Final reports for procedures using fluoroscopy that document radiation exp osure indices, or exposure time and number of fluorographic images (if radiation exposure indices are not available) TECHNICAL DOCUMENTATION: JOB ID: [id number] [employer] All Rights Reserved Reading location - IP/workstation name: [email or web address]
== END ==
LOC: RAD 09:40
PROVIDERS: ATTEND Surgery
DX: K57.80 Diverticulitis of intestine, part unspecified, with perforation and abscess without bleeding (principal)
CPT/HCPCS: 74280

== ENCOUNTER 2019-02-05 09:08 | Emergency (ER) | payer OTHER ==
--- NOTE | 2019-02-05 09:37 | ER Document Report ---
ED Medical Screen (RME) - General Chief Complaint: Vaginal Bleeding Stated Complaint: VAGINAL BLEEDING Time Seen by Provider: 02/05/19 09:28 Primary Care Provider: KIMBERLY FELDMAN MD [Primary Care Provider] - Follow up as needed Notes: Patient is a 63-year-old female who presents emergency department with a chief complaint of vaginal bleeding. Patient reports she has had her tubes and ovaries removed. Patient reports she still has a uterus. Patient reports 2 months ago she was having hot flashes. She states she did follow-up with her surgeon who remove the tubes and ovaries with who told her that she could still be going through menopause. Patient reports 2 weeks ago she started having vaginal spotting that is now like a menstrual cycle. She did call her surgeon who told her to follow-up with FARM DEMONSTRATOR as vaginal bleeding is not normal. Patient reports cramping. Patient denies specific abdominal pain. Patient denies urinary symptoms. TRAVEL OUTSIDE OF THE [place] IN LAST 30 DAYS: No - Related Data Allergies/Adverse Reactions: No Known Allergies Allergy (Verified 09/10/18 07:41) Past Medical History - Social History Chew tobacco use (# tins/day): No Frequency of alcohol use: None Drug Abuse: None - Past Medical History Cardiac Medical History: Denies: Hx Coronary Artery Disease, Hx Heart Attack, Hx Hypertension Pulmonary Medical History: Reports: Hx Asthma - MILD SEASONAL Denies: Hx Bronchitis, Hx COPD, Hx Pneumonia Neurological Medical History: Denies: Hx Cerebrovascular Accident, Hx Seizures Renal/ Medical History: Denies: Hx Peritoneal Dialysis GI Medical History: Denies: Hx Cirrhosis, Hx Hepatitis Musculoskeltal Medical History: Reports Hx Arthritis - RIGHT ANKLE, Denies Hx Fibromyalgia Skin Medical History: Denies Hx Eczema, Denies Hx Psoriasis Psychiatric Medical History: Reports: Hx Depression Infectious Medical History: Denies: Hx Hepatitis Past Surgical History: Reports: Hx Gynecologic Surgery - oophrectomy due to abscess, Hx Orthopedic Surgery - Right ankle surgery, Hx Urinary Tract Surgery - stents. Denies: Hx Hysterectomy - Immunizations Hx Diphtheria, Pertussis, Tetanus Vaccination: Yes Physical Exam - Vital signs Vitals: Temp Pulse Resp BP Pulse Ox 97.9 F 84 18 145/112 H 93 02/05/19 09:14 02/05/19 09:14 02/05/19 09:14 02/05/19 09:14 02/05/19 09:14 - Abdominal Inspection: Normal Distension: No distension Bowel sounds: Normal Tenderness: Nontender Organomegaly: No organomegaly Course - Re-evaluation Re-evalutation: 02/05/19 09:37 I have greeted and performed a rapid initial assessment of this patient. A comprehensive ED assessment and evaluation of the patient, analysis of test results and completion of the medical decision making process will be conducted by additional ED providers. - Vital Signs Vital signs: Temp Pulse Resp BP Pulse Ox 97.9 F 84 18 145/112 H 93 02/05/19 09:22 02/05/19 09:14 02/05/19 09:22 02/05/19 09:14 02/05/19 09:22 Doctor's Discharge - Discharge Referrals: KIMBERLY FELDMAN MD [Primary Care Provider] - Follow up as needed
[2019-02-05 10:09] LABS: ABSOLUTE EOSINOPHILS # (AUTO) 0.4 10^3/uL (0.0-0.6); ABSOLUTE LYMPHOCYTES (AUTO) 1.8 10^3/uL (0.5-4.7); ABSOLUTE MONOCYTES (AUTO) 0.4 10^3/uL (0.1-1.4); ABSOLUTE NEUT (AUTO) 5.9 10^3/uL (1.7-8.2); BASOPHILS % (AUTO) 0.5 % (0-2); EOSINOPHILS % (AUTO) 4.5 % (0-6); HEMATOCRIT 36.4 % (36.0-47.0); HEMOGLOBIN 12.8 g/dL (12.0-15.5); LYMPHOCYTES % (AUTO) 21.3 % (13-45); MEAN CORPUSCULAR HEMOGLOBIN 32.1 pg (27.0-33.4); MEAN CORPUSCULAR HGB CONC 35.1 g/dL (32.0-36.0); MEAN CORPUSCULAR VOLUME 92 fl (80-97); MONOCYTES % (AUTO) 4.8 % (3-13); PLATELET COUNT 133 10^3/uL (150-450); RED BLOOD COUNT 3.98 10^6/uL (3.72-5.28); RED CELL DISTRIBUTION WIDTH 14.3 % (11.5-14.0); SEGMENTED NEUTROPHILS % (AUTO) 68.9 % (42-78); TOTAL CELLS COUNTED % (AUTO) 100 %; WHITE BLOOD COUNT 8.5 10^3/uL (4.0-10.5)
[2019-02-05 10:22] LABS: APPEARANCE,URINE SLIGHTLY-CLOUDY; BILIRUBIN,URINE NEGATIVE (NEGATIVE); COLOR,URINE YELLOW; GLUCOSE, URINE NEGATIVE (NEGATIVE); KETONES,URINE TRACE mg/dL (NEGATIVE); LEUKOCYTE ESTERASE,URINE NEGATIVE (NEGATIVE); NITRITE,URINE NEGATIVE (NEGATIVE); PROTEIN,URINE 30 mg/dL (NEGATIVE); URINE SPECIFIC GRAVITY 1.028; UROBILINOGEN,URINE NEGATIVE mg/dL (<2.0)
[2019-02-05 10:28] LABS: ALBUMIN 4.6 g/dL (3.5-5.0); ALKALINE PHOSPHATASE 62 U/L (38-126); ANION GAP 11 (5-19); ASPARTATE AMINO TRANSFERASE 21 U/L (14-36); BILIRUBIN,DIRECT 0.3 mg/dL (0.0-0.4); BILIRUBIN,TOTAL 0.6 mg/dL (0.2-1.3); BLOOD UREA NITROGEN 13 mg/dL (7-20); CALCIUM 9.8 mg/dL (8.4-10.2); CARBON DIOXIDE 27 mmol/L (22-30); CHLORIDE 104 mmol/L (98-107); GLUCOSE 89 mg/dL (75-110); POTASSIUM 4.1 mmol/L (3.6-5.0); TOTAL PROTEIN 8.2 g/dL (6.3-8.2)
--- NOTE | 2019-02-05 10:45 | RADIOLOGY REPORT (SQ) ---
EXAM DESCRIPTION: U/S NON-OB PELVIS TV W/O DOP COMPLETED DATE/TIME: 02/05/2019 10:22 am REASON FOR STUDY: abnormal vaginal bleeding, tubes/ovaries removed COMPARISON: None. TECHNIQUE: Dynamic and static grayscale images acquired of the pelvis via transvaginal approach and recorded on PACS. Additional selected color Doppler and spectral images recorded. LIMITATIONS: None. FINDINGS: UTERUS: Normal in size and contour measuring 4.7 x 3.6 x 2.3 cm. ENDOMETRIAL STRIPE: Endometrial stripe is visualized measuring 3.3 mm. No focal thickening. CERVIX: No nabothian cysts. RIGHT OVARY AND DOPPLER: Non visualized, reportedly surgically absent. LEFT OVARY AND DOPPLER: Non visualized, reportedly surgically absent. FREE FLUID: None noted. OTHER: No other significant finding. IMPRESSION: Ovaries non visualized, reportedly surgically absent. Otherwise, unremarkable pelvic ultrasound. Recommend correlation with gynecologic exam for further e valuation of reported vaginal bleeding in a postmenopausal patient. TECHNICAL DOCUMENTATION: JOB ID: [id number] [employer]- All Rights Reserved Rev Reading location - IP/workstation name: [email or web address]
--- NOTE | 2019-02-05 11:57 | ER Document Report ---
Entered by TONY CASTELLANOS SCRIBE 02/05/19 1132 Acting as scribe for:SALMA ALVAREZ IV, MD ED GI/ - General Chief Complaint: Vaginal Bleeding Stated Complaint: VAGINAL BLEEDING Time Seen by Provider: 02/05/19 09:28 Information source: Patient Notes: This 63-year-old female patient presents to the emergency department today with complaints of a 2-week history of vaginal bleeding. Patient reports that initially when the bleeding began it was more of a spotting but now the bleeding has gotten heavier, now bleeding like a normal period. Patient states she had her "tubes and ovaries removed" in April 2018. Patient states she called her [facility] surgeon earlier today who told her that bleeding this far out is not normal, to come to the emergency department. Patient also complains of some mild associated lower abdominal cramping. Patient is in pain management with a long history of being on opiate pain medication PCP: Chary HOLDER TRAVEL OUTSIDE OF THE [place] IN LAST 30 DAYS: No - Related Data Allergies/Adverse Reactions: No Known Allergies Allergy (Verified 09/10/18 07:41) Past Medical History - General Information source: Patient, [facility] Records - Social History Smoking Status: Never Smoker Cigarette use (# per day): No Chew tobacco use (# tins/day): No Frequency of alcohol use: None Drug Abuse: None Lives with: Family Family History: None, Reviewed & Not Pertinent Patient has suicidal ideation: No Patient has homicidal ideation: No Pulmonary Medical History: Reports: Hx Asthma - MILD SEASONAL Renal/ Medical History: Reports: Hx Ovarian Cysts Musculoskeletal Medical History: Reports Hx Arthritis - RIGHT ANKLE Psychiatric Medical History: Reports: Hx Depression Past Surgical History: Reports: Hx Gynecologic Surgery - salpingo-oophorectomy due to abscess, Hx Orthopedic Surgery - Right ankle surgery, Hx Urinary Tract Surgery - stents - Immunizations Hx Diphtheria, Pertussis, Tetanus Vaccination: Yes Review of Systems - Review of Systems Constitutional: No symptoms reported EENT: No symptoms reported Cardiovascular: No symptoms reported Respiratory: No symptoms reported Gastrointestinal: See HPI, Abdominal pain Genitourinary: No symptoms reported Female Genitourinary: See HPI, Vaginal bleeding Musculoskeletal: No symptoms reported Skin: No symptoms reported Hematologic/Lymphatic: No symptoms reported Neurological/Psychological: No symptoms reported -: Yes All other systems reviewed and negative Physical Exam - Vital signs Vitals: Temp Pulse Resp BP Pulse Ox 97.9 F 84 18 145/112 H 93 02/05/19 09:14 02/05/19 09:14 02/05/19 09:14 02/05/19 09:14 02/05/19 09:14 - Notes Notes: Physical Exam: General: Alert, appears well. HEENT: Normocephalic. Atraumatic. PERRL. Extraocular movements intact. Oropharynx clear. Neck: Supple. Non-tender. Respiratory: No respiratory distress. Clear and equal breath sounds bilaterally. Cardiovascular: Regular rate and rhythm. Abdominal: Normal Inspection. Non-tender. No distension. Normal Bowel Sounds. Back: No gross abnormalities. Extremities: Moves all four extremities. Upper extremities: Normal inspection. Normal ROM. Lower extremities: Normal inspection. No edema. Normal ROM. Neurological: Normal cognition. AAOx4. Normal speech. Psychological: Normal affect. Normal Mood. Skin: Warm. Dry. Normal color. - Genitourinary External exam: Normal Speculum exam: Vaginal discharge - green colored with scant drops of blood Bimanuel exam: No: Cervical motion tender, Adnexal mass, Adnexal tenderness Course - Re-evaluation Re-evalutation: 02/05/19 12:21 Findings of ultrasound, lab work, urinalysis, CORRIE and wet prep discussed with patient and patient's spouse. All questions were answered. Patient was instructed to follow-up with her painter in [place] or at [facility] within the next 3 days to schedule gynecology follow-up and a Pap smear. Patient states she understood importance of doing so and said she will follow-up with her painter as instructed. Emergency signs and symptoms, reasons to return to the emergency department discussed with patient and patient's spouse. They expressed understanding of urgency signs and symptoms and reasons to return. - Vital Signs Vital signs: Temp Pulse Resp BP Pulse Ox 97.9 F 84 18 145/112 H 93 02/05/19 09:22 02/05/19 09:14 02/05/19 09:22 02/05/19 09:14 02/05/19 09:22 02/05/19 12:23 Vital signs reviewed by this MD. - Laboratory Result Diagrams: 02/05/19 09:40 02/05/19 09:40 Laboratory results interpreted by me: 02/05/19 02/05/19 09:40 09:40 RDW 14.3 H Plt Count 133 L Urine Protein 30 H Urine Ketones TRACE H 02/05/19 12:28 All laboratory results reviewed by this MD. - Diagnostic Test Radiology reviewed: Reports reviewed Discharge - Discharge Clinical Impression: Vaginal bleeding, abnormal Disposition: HOME, SELF-CARE Instructions: Vaginal Bleeding ([facility]) Additional Instructions: BE CERTAIN TO FOLLOW UP WITH YOUR GLUER MACHINE SETUP OPERATOR ON 02/08/19 TO SCHEDULE A FOLLOW UP APPOINTMENT HOME CARE INSTRUCTIONS & INFORMATION: Thank you for choosing us for your medical needs. We hope you're satisfied with the care you received. After you leave, you must properly care for your problem and, at the same time, observe its progress. Any condition can change. Some illnesses can change rapidly over hours or days. If your condition worsens, return to the Emergency Department or see your physician promptly. ABOUT YOUR X-RAYS AND EKG'S: If you had an EKG or X-rays taken, they have been read by the Emergency Physician. The X-rays and EKG's will also be read by a Radiologist or Data Modeler within 24 hours. If discrepancies are noted, you will be notified by telephone. Please be certain the ED has a correct telephone number & address where you can be reached. Also, realize that some fractures or abnormalities do not show up on initial X-rays. If your symptoms continue, see your physician. ABOUT YOUR LABORATORY TEST: If you had laboratory tests, the results have been reviewed by the Emergency Physician. Some test results (for example cultures) may not be available for several days. You will be contacted if any test result shows you need additional treatment. Please be certain the ED has a correct telephone number and address where you can be reached. ABOUT YOUR MEDICATIONS: You will receive instructions on how to take your medicine on the prescription label you receive. Additional information may be provided by the Pharmacy. If you have questions afterwards, call the ED for clarification or further instructions. Some prescribed medications may cause d rowsiness. Do not perform tasks such as driving a car or operating machinery without consulting your Pharmacist. If you feel you need a refill of pain medication, your condition will need re-evaluation. Please do not call for a refill of any medication. ABOUT YOUR SIGNATURE: Signature of this document acknowledges to followin. Understanding that you received emergency treatment and that you may be released before al medical problems are known or treated. Please be certain the ED has a correct phone number & address where you can be reached. 2. Acknowledgement that you will arrange for follow-up care as recommended. 3. Authorization for the Emergency Physician to provide information to your follow-up Physician in order to maximize your care. AT ANY TIME, IF YOUR SYMPTOMS CHANGE SIGNIFICANTLY OR WORSEN OR YOU DEVELOP NEW SYMPTOMS, RETURN TO THE EMERGENCY DEPARTMENT IMMEDIATELY FOR RE-EVALUATION. OUR GOAL IS TO PROVIDE EXCELLENT MEDICAL CARE! WE HOPE THAT WE HAVE MET YOUR EXPECTATIONS DURING YOUR EMERGENCY DEPARTMENT VISIT AND THAT YOU FEEL YOU HAVE RECEIVED EXCELLENT CARE! Return to the Emergency Department without delay if any worse. I personally performed the services described in the documentation, reviewed and edited the documentation which was dictated to the scribe in my presence, and it accurately records my words and actions.
[2019-02-05 12:08] LABS: BACTERIA (WET MOUNT) 4+ BACTERIA SEEN; RBCS (WET MOUNT) FEW RBCS SEEN; T.VAGINALIS (WET MOUNT) NO TRICHOMONAS SEEN; WBCS (WET MOUNT) 4+ WBCS SEEN; YEAST (WET MOUNT) NO YEAST SEEN
[2019-02-05 12:48] VITALS: BP 137/79
[2019-02-05 15:02] LABS: CHLAM PCR NOT DETECTED (NOT DETECT)
== END 2019-02-05 12:48 | disposition home or self-care (01) ==
LOC: ER 09:08
DX: N93.8 Other specified abnormal uterine and vaginal bleeding (principal); Z90.722 Acquired absence of ovaries, bilateral
CPT/HCPCS: 36415; 76830; 80053; 81001; 85025; 87210; 87491; 87591; 99284